=== PATIENT | male | born 1955 | race Caucasian/White ===

== ENCOUNTER 2017-12-14 16:31 | Outpatient (REF) | payer BC, SELFPAY ==
[2017-12-14 22:33] LABS: HCT 40.9 % (40.0-50.0); HGB 13.8 g/dL (13.5-17.5); Mean Corp. HGB Concentration 33.7 g/dL (32.0-36.0); Mean Corpuscular Hemoglobin 32.8 pg (27.0-33.0); Mean Corpuscular Volume 97.1 fL (80-95); Mean Platelet Volume 9.9 fL (8.0-11.0); Platelet Count 233 x1000/uL (130-400); RBC 4.21 m/cumm (4.50-6.00); RBC Distribution Width 13.7 % (11.8-14.1); White Blood Cell Count 8.33 k/cumm (4.4-10.8)
[2017-12-14 23:09] LABS: ALT 42 U/L (12-78); AST 31 U/L (15-37); Albumin 3.5 g/dL (3.4-5.0); Alkaline Phosphatase 192 U/L (46-116); Anion Gap 7.8 mmol/L (3-11); BUN 26 mg/dL (7-18); Bilirubin, Total 0.3 mg/dL (0.2-1.0); CO2 28.2 mmol/L (21.0-32.0); CREATININE 0.94 mg/dL (0.70-1.30); Chloride 106 mmol/L (98-107); Glucose 94 mg/dL (70-100); Potassium 4.3 mmol/L (3.5-5.1); Sodium 142 mmol/L (136-145); TSH 1.02 uIU/mL (0.358-3.74); Total Protein 6.8 g/dL (6.4-8.2); Vitamin B12 354 pg/mL (193-986)
[2017-12-14 23:19] LABS: Calcium 9.2 mg/dL (8.5-10.1)
== END 2017-12-14 16:51 ==
LOC: NCHCN 16:31
PROVIDERS: PCP Internal Medicine; Visit Provider Registered Nurse
DX: R26.9 Unspecified abnormalities of gait and mobility (principal)
CPT/HCPCS: 80053; 85027; 82607; 84443

== ENCOUNTER 2017-12-20 07:50 | Outpatient (REF) | payer BC, SELFPAY ==
[2017-12-20 22:43] LABS: ALT 41 U/L (12-78); AST 24 U/L (15-37); Albumin 3.4 g/dL (3.4-5.0); Alkaline Phosphatase 199 U/L (46-116); BUN 20 mg/dL (7-18); Bilirubin, Total 0.4 mg/dL (0.2-1.0); CREATININE 0.87 mg/dL (0.70-1.30); Calcium 8.5 mg/dL (8.5-10.1); Chloride 105 mmol/L (98-107); Glucose 97 mg/dL (70-100); Potassium 4.1 mmol/L (3.5-5.1); Sodium 143 mmol/L (136-145); Total Protein 6.7 g/dL (6.4-8.2)
[2017-12-21 16:27] LABS: GGT 269 U/L (15-85)
== END 2017-12-20 08:10 ==
LOC: NCHCN 07:50
PROVIDERS: PCP Internal Medicine; Visit Provider Registered Nurse
DX: Z00.01 Encounter for general adult medical examination with abnormal findings (principal); Z13.228 Encounter for screening for other metabolic disorders; R74.8 Abnormal levels of other serum enzymes
CPT/HCPCS: 80053; 82977

== ENCOUNTER 2018-03-27 12:26 | Outpatient (REF) | payer BC, SELFPAY ==
[2018-03-29 11:49] LABS: PSA, Screening 24.5 ng/ml (0-4.5)
== END 2018-03-27 12:46 ==
LOC: NCHCN 12:26
PROVIDERS: PCP Registered Nurse; Visit Provider Registered Nurse
DX: R82.90 Unspecified abnormal findings in urine (principal); R30.0 Dysuria; Z11.3 Encounter for screening for infections with a predominantly sexual mode of transmission; Z12.5 Encounter for screening for malignant neoplasm of prostate
CPT/HCPCS: 84153; 87077; 87086; 87186

== ENCOUNTER 2018-03-28 09:05 | Outpatient (REF) | payer BC, SELFPAY ==
[2018-03-30 14:36] LABS: Chlamydia Result Negative; GC Result Negative; Specimen Description URINE
== END 2018-03-28 09:25 ==
LOC: NCHCN 09:05
PROVIDERS: PCP Registered Nurse; Visit Provider Registered Nurse
DX: R82.90 Unspecified abnormal findings in urine (principal); R30.0 Dysuria; Z11.3 Encounter for screening for infections with a predominantly sexual mode of transmission
CPT/HCPCS: 87491; 87591

== ENCOUNTER 2019-04-18 10:25 | Outpatient (REF) | payer BC, SELFPAY ==
[2019-04-18 22:46] LABS: ALT 45 U/L (16-63); AST 29 U/L (15-37); Albumin 3.7 g/dL (3.4-5.0); Alkaline Phosphatase 246 U/L (46-116); Anion Gap 7.8 mmol/L (3-11); BUN 23 mg/dL (7-18); Bilirubin, Total 0.4 mg/dL (0.2-1.0); CO2 30.2 mmol/L (21.0-32.0); CREATININE 0.83 mg/dL (0.70-1.30); Calcium 9.1 mg/dL (8.5-10.1); Calculated LDL 159 mg/dL (<100); Chloride 104 mmol/L (98-107); Cholesterol 218 mg/dL (<200); Glucose 101 mg/dL (74-106); HDL Cholesterol 48 mg/dL (40-60); Potassium 4.7 mmol/L (3.5-5.1); Sodium 142 mmol/L (136-145); Total Protein 7.2 g/dL (6.4-8.2); Triglyceride 57 mg/dL (<150)
[2019-04-20 12:09] LABS: Hepatitis C Ab w Rflx HCV PCR Negative (Negative)
== END 2019-04-18 10:45 ==
LOC: NCHCN 10:25
PROVIDERS: PCP Registered Nurse; Visit Provider Registered Nurse
DX: Z00.00 Encounter for general adult medical examination without abnormal findings (principal); K76.0 Fatty (change of) liver, not elsewhere classified; R60.0 Localized edema; Z11.59 Encounter for screening for other viral diseases
CPT/HCPCS: 80053; 80061; 86803

== ENCOUNTER 2019-07-23 07:54 | Outpatient (REF) | payer BC, SELFPAY ==
[2019-07-23 21:59] LABS: Calculated LDL 93 mg/dL (<100); Cholesterol 157 mg/dL (<200); HDL Cholesterol 52 mg/dL (40-60); Triglyceride 61 mg/dL (<150)
== END 2019-07-23 08:14 ==
LOC: NCHCN 07:54
PROVIDERS: PCP Registered Nurse; Visit Provider Registered Nurse
DX: E78.5 Hyperlipidemia, unspecified (principal)
CPT/HCPCS: 80061

== ENCOUNTER 2019-08-24 17:48 | Outpatient (REF) | payer BC, SELFPAY ==
[2019-08-25 23:32] LABS: COVID-19 RT-PCR Result NEGATIVE (Negative)
== END 2019-08-24 18:08 ==
LOC: NCHCN 17:48
PROVIDERS: PCP Registered Nurse; Visit Provider Nurse Practitioner Family
DX: Z20.828 Contact with and (suspected) exposure to other viral communicable diseases (principal)
CPT/HCPCS: U0003

== ENCOUNTER 2019-11-05 22:37 | Outpatient (REF) | payer BC, SELFPAY ==
[2019-11-05 21:48] LABS: Calculated LDL 163 mg/dL (<100); Cholesterol 224 mg/dL (<200); HDL Cholesterol 52 mg/dL (40-60); Triglyceride 46 mg/dL (<150)
== END 2019-11-05 22:57 ==
LOC: NCHCN 22:37
PROVIDERS: PCP Registered Nurse; Visit Provider Registered Nurse
DX: E78.5 Hyperlipidemia, unspecified (principal)
CPT/HCPCS: 80061

== ENCOUNTER 2020-05-14 10:51 | Outpatient (REF) | payer BC, SELFPAY ==
[2020-05-14 14:04] LABS: ALT 65 U/L (16-63); AST 36 U/L (15-37); Albumin 3.7 g/dL (3.4-5.0); Alkaline Phosphatase 275 U/L (46-116); Anion Gap 9.8 mmol/L (3-11); BUN 27 mg/dL (7-18); Bilirubin, Total 0.5 mg/dL (0.2-1.0); CO2 25.2 mmol/L (21.0-32.0); CREATININE 0.8 mg/dL (0.70-1.30); Calcium 9.3 mg/dL (8.5-10.1); Calculated LDL 110 mg/dL (<100); Chloride 106 mmol/L (98-107); Cholesterol 185 mg/dL (<200); Glucose 105 mg/dL (74-106); HDL Cholesterol 65 mg/dL (40-60); Potassium 4.2 mmol/L (3.5-5.1); Sodium 141 mmol/L (136-145); Total Protein 7.4 g/dL (6.4-8.2); Triglyceride 54 mg/dL (<150)
== END 2020-05-14 10:52 | disposition home or self-care (01) ==
LOC: NCHCN 10:51
PROVIDERS: PCP Registered Nurse; Visit Provider Internal Medicine
DX: E78.5 Hyperlipidemia, unspecified (principal); K76.0 Fatty (change of) liver, not elsewhere classified
CPT/HCPCS: 80053; 80061

== ENCOUNTER 2020-08-07 15:04 | Outpatient (REF) | payer BC, SELFPAY ==
[2020-08-07 21:06] LABS: Abs Immature Grans 0.02 10^3/uL (0.0-0.06); Absolute Basophil Count 0.04 10^3/uL (0.0-0.2); Absolute Eosinophil Count 0.67 10^3/uL (0.0-0.7); Absolute Lymphocyte Count 2.22 10^3/uL (1.2-3.4); Absolute Monocyte Count 0.95 10^3/uL (0.1-0.8); Absolute Neutrophil Count 5.42 10^3/uL (1.2-6.7); Basophils % 0.4; Eosinophils % 7.2; HCT 40.5 % (40.0-50.0); HGB 13.4 g/dL (13.5-17.5); Immature Grans % 0.2; Lymphocytes % 23.8; MCH 31.6 pg (27.0-33.0); MCHC 33.1 % (32.0-36.0); MCV 95.5 fL (80-95); MPV 10.3 fL (8.0-11.0); Monocytes % 10.2; Neutrophils % 58.2; Nucleated RBC 0 %; Platelet Count 249 10^3/uL (130-400); RBC 4.24 10^6/uL (4.36-5.78); RDW 14.6 % (11.8-14.1); RDW-SD 51.2 fL; WBC 9.32 10^3/uL (4.4-10.8)
[2020-08-07 21:12] LABS: Bacteria Few HPF (Negative); C & S Indicated? C&S Done As Ordered; Casts Negative LPF (Negative); Crystals Negative HPF (Negative); Epithelial Cells Rare HPF (Negative); Mucus Negative (Negative); Other Cells Negative (Negative); RBC >50 HPF (0-2)
[2020-08-07 21:26] LABS: Anion Gap 5.6 mmol/L (3-11); BUN 22 mg/dL (7-18); CO2 27.4 mmol/L (21.0-32.0); CREATININE 0.8 mg/dL (0.70-1.30); Calcium 9.3 mg/dL (8.5-10.1); Chloride 104 mmol/L (98-107); Glucose 100 mg/dL (74-106); Sodium 137 mmol/L (136-145)
== END 2020-08-07 15:05 | disposition home or self-care (01) ==
LOC: NCHCN 15:04
PROVIDERS: PCP Registered Nurse; Visit Provider Registered Nurse
DX: I48.91 Unspecified atrial fibrillation (principal); E78.5 Hyperlipidemia, unspecified; R39.89 Other symptoms and signs involving the genitourinary system; Z12.5 Encounter for screening for malignant neoplasm of prostate; R30.0 Dysuria
CPT/HCPCS: 80048; 84153; 81015; 85025; 87086

== ENCOUNTER 2022-02-02 17:48 | Outpatient (REF) | payer BC, SELFPAY ==
[2022-02-02 22:14] LABS: ALT 51 U/L (16-63); AST 43 U/L (15-37); Albumin 3.4 g/dL (3.4-5.0); Alkaline Phosphatase 379 U/L (46-116); Anion Gap 6.1 mmol/L (3-11); BUN 30 mg/dL (7-18); Bilirubin, Total 0.6 mg/dL (0.2-1.0); CO2 27.9 mmol/L (21.0-32.0); CREATININE 1.1 mg/dL (0.70-1.30); Calcium 9.3 mg/dL (8.5-10.1); Calculated LDL 97 mg/dL (<100); Chloride 103 mmol/L (98-107); Cholesterol 187 mg/dL (<200); Estimated GFR 74.96 (mL/min/1.73m2); Glucose 87 mg/dL (74-106); HDL Cholesterol 84 mg/dL (40-60); Potassium 4.3 mmol/L (3.5-5.1); Sodium 137 mmol/L (136-145); Total Protein 7.3 g/dL (6.4-8.2); Triglyceride 33 mg/dL (<150)
== END 2022-02-02 17:49 | disposition home or self-care (01) ==
LOC: NCHCN 17:48
PROVIDERS: PCP Registered Nurse; Visit Provider Nurse Practitioner Family
DX: E78.5 Hyperlipidemia, unspecified (principal); E66.9 Obesity, unspecified
CPT/HCPCS: 80053; 80061

== ENCOUNTER 2023-05-02 14:11 | Outpatient (REF) | payer BC, SELFPAY ==
--- OUTSIDE RECORDS SUMMARY | 2023-05-02 14:18 | XMS_ITS | CCD ---
Author Name Unknown Address [address] [place] [address] [id number] Organization Unknown Address [address] [place] [address] [phone] Care Team Providers Care Filament Cutter Name Role Phone ANNIE CUNHA Attending Physician [phone] Vital Signs Unknown or Not Available. Allergies Allergy Code Allergy Type Reaction Status PENICILLINS (CLASS) 38219 Drug allergy Act pepe Procedures Unknown or Not Available. History of Immunizations Unknown or Not Available. Problems Unknown or Not Available. Results Unknown or Not Available. Active Medications Unknown or Not Available. Medications Administered During Visit Unknown or Not Available. Encounters Encounter Diagnosis Diagnosis Code Start Date Paroxysmal atrial fibrillation [id number] 0 11/02/2022 Social History Smoking Status Code Start Date End Date Current some day smoker [id number] Patient Decision Aids Unknown or Not Available. Discharge Instructions You were admitted to [facility] on 11/02/2022 09:14 with a principal diagnosis of Paroxysmal atrial fibrillation You were discharged from [facility] on 11/02/2022 09:14 Should you have any questions prior to discharge, please contact a member of your healthcare team. If you have left the hospital and have any questions, please contact your primary care physician. Chief Complaint and Reason For Visit Unknown or Not Available. Function Status Unknown or Not Available. Plan of Care Unknown or Not Available. Referral/Transition of Care Unknown or Not Available.
--- OUTSIDE RECORDS SUMMARY | 2023-05-02 14:18 | XMS_ITS | CCD ---
Author Name Unknown Address [address] [place] [address] [id number] Organization Unknown Address [address] [place], [place] [phone] Care Team Providers Care Line Out Worker Name Role Phone JERZY DAY Maggie Attending Physician [phone] Vital Signs Unknown or Not Available. Allergies Allergy Code Allergy Type Reaction Status PENICILLINS (CLASS) 72650 Drug allergy Act pepe Procedures Unknown or Not Available. History of Immunizations Unknown or Not Available. Problems Unknown or Not Available. Results Unknown or Not Available. Active Medications Unknown or Not Available. Medications Administered During Visit Unknown or Not Available. Encounters Encounter Diagnosis Diagnosis Code Start Date Bradycardia, unspecified R001 023 Social History Smoking Status Code Start Date End Date Current some day smoker [id number] Patient Decision Aids Unknown or Not Available. Discharge Instructions You were admitted to [facility] on 11/04/2022 10:37 with a principal diagnosis of Bradycardia, unspecified You were discharged from [facility] on 11/04/2022 10:37 Should you have any questions prior to [...]
--- OUTSIDE RECORDS SUMMARY | 2023-05-02 14:18 | XMS_ITS | CCD ---
Author Name Unknown Address [address] [place] [address] [id number] Organization Unknown Address [address] [place], [place] [id number] Care Team Providers Care Water Quality Manager Name Role Phone JERZY DAY Attending Physician [phone] Vital Signs Unknown or Not Available. Allergies Allergy Code Allergy Type Reaction Status PENICILLINS (CLASS) 06223 Drug allergy Act pepe Procedures Unknown or Not Available. History of Immunizations Unknown or Not Available. Problems Problem Code Start Date Resolved Date Status Stone in kidney 54076011 10/30/2022 Resolved Atrial fibrillation 38998754 10/30/2022 Resol raymon Results Unknown or Not Available. Active Medications Unknown or Not Available. Medications Administered During Visit Unknown or Not Available. Encounters Encounter Diagnosis Diagnosis Code Start Date Obstructive sleep apnea syndrome 26065862 10/27/2022 Social History Smoking Status Code Start Date End Date Current some day smoker [id number] Patient Decision Aids Unknown or Not Available. Discharge Instructions You were admitted to [facility] on 10/27/2022 14:39 with a principal diagnosis of Obstructive sleep apnea (adult) (pediatric) You were discharged from [facility] on 10/27/2022 14:39 Should you have any questions prior to [...]
--- OUTSIDE RECORDS SUMMARY | 2023-05-02 14:19 | XMS_ITS | CCD ---
Author Name Unknown Address [address] [place] [address] [phone] Organization Unknown Address [address] [place], [place] [id number] Care Team Providers Care Four Horse Hitch Driver Name Role Phone WALT BOLTON Attending Physician [phone] Vital Signs Unknown or Not Available. Allergies Allergy Code Allergy Type Reaction Status PENICILLINS (CLASS) 16497 Drug allergy Act pepe Procedures Unknown or Not Available. History of Immunizations Unknown or Not Available. Problems Problem Code Start Date Resolved Date Status Stone in kidney 17073105 10/30/2022 Resolved Atrial fibrillation 23896648 10/30/2022 Resol raymon Results Unknown or Not Available. Active Medications Unknown or Not Available. Medications Administered During Visit Unknown or Not Available. Encounters Encounter Diagnosis Diagnosis Code Start Date Abnormal findings on diagnos tic imaging of other abdominal regions, including retroperitoneum R935 04/21/2022 Social History Smoking Status Code Start Date End Date Current some day smoker [id number] Patient Decision Aids Unknown or Not Available. Discharge Instructions You were admitted to [facility] on 04/21/2022 07:40 with a principal diagnosis of Abnormal findings on diagnostic imaging of other abdominal regions, including retroperitoneum You were discharged from [facility] on 04/21/2022 07:40 Should you have any questions prior to discharge, please contact a member of your healthcare team. If you have left the hospital and have any questions, please contact your primary care physician. Chief Complaint and Reason For Visit Chief Complaint Date of Onset STEATOSIS OF LIVER Function Status Unknown or Not Available. Plan of Care Unknown or Not Available. Referral/Transition of Care Unknown or Not Available.
--- OUTSIDE RECORDS SUMMARY | 2023-05-02 14:19 | XMS_ITS | CCD ---
Author Name Unknown Address [address] [place] [address] [id number] Organization Unknown Address [address] [place], [place] [id number] Care Team Providers Care Battalion Chief Name Role Phone IRVIN LOYD Attending Physician [phone] Vital Signs Unknown or Not Available. Allergies Allergy Code Allergy Type Reaction Status PENICILLINS (CLASS) 58765 Drug allergy Act pepe Procedures Unknown or Not Available. History of Immunizations Unknown or Not Available. Problems Problem Code Start Date Resolved Date Status Stone in kidney 67662628 10/30/2022 Resolved Atrial fibrillation 06507559 10/30/2022 Resol raymon Results Unknown or Not Available. Active Medications Unknown or Not Available. Medications Administered During Visit Unknown or Not Available. Encounters Encounter Diagnosis Diagnosis Code Start Date Screening for malignant neoplasm of colon 998799 004 04/01/2022 Social History Smoking Status Code Start Date End Date Current some day smoker [id number] Patient Decision Aids Unknown or Not Available. Discharge Instructions You were admitted to [facility] on 04/01/2022 01:15 with a principal diagnosis of Encounter for screening for malignant neoplasm of colon You were discharged from [facility] on 04/01/2022 01:16 Should you have any questions prior to [...]
--- OUTSIDE RECORDS SUMMARY | 2023-05-02 14:19 | XMS_ITS | CCD ---
Author Name Unknown Address [address] [place] [address] [phone] Organization Unknown Address [address] [place], [place] [phone] Care Team Providers Care Asphalt Tamping Machine Operator Name Role Phone KALPESHISREALBARD SCHAFFER Attending Physician [phone] Vital Signs Unknown or Not Available. Allergies Allergy Code Allergy Type Reaction Status PENICILLINS (CLASS) 65665 Drug allergy Act pepe Procedures Unknown or Not Available. History of Immunizations Unknown or Not Available. Problems Problem Code Start Date Resolved Date Status Stone in kidney 73628030 10/30/2022 Resolved Atrial fibrillation 37721061 10/30/2022 Resol raymon Results Unknown or Not Available. Active Medications Unknown or Not Available. Medications Administered During Visit Unknown or Not Available. Encounters Encounter Diagnosis Diagnosis Code Start Date Snoring R0683 08/21/2022 Social History Smoking Status Code Start Date End Date Current some day smoker [id number] Patient Decision Aids Unknown or Not Available. Discharge Instructions You were admitted to [facility] on 08/21/2022 20:25 with a principal diagnosis of Snoring You were discharged from [facility] on 08/22/2022 06:30 Should you have any questions prior to [...]
--- OUTSIDE RECORDS SUMMARY | 2023-05-02 14:19 | XMS_ITS | CCD ---
Author Name Unknown Address [address] [place] [address] [phone] Organization Unknown Address [address] [place], [place] [phone] Care Team Providers Care Business Transformation Consultant Name Role Phone EVERTIRVIN PARKER Attending Physician [phone] Vital Signs Unknown or Not Available. Allergies Allergy Code Allergy Type Reaction Status PENICILLINS (CLASS) 31041 Drug allergy Act pepe Procedures Procedure Code Procedure Type Date Colsc Flx w/[place] [address] CPT 04/01/2022 Colonoscopy Flx w/Endoscopic Mucosal Resection 83273 CPT 04/01/2022 History of Immunizations Unknown or Not Available. Problems Problem Code Start Date Resolved Date Status Stone in kidney 73883672 10/30/2022 Resolved Atrial fibrillation 46042938 10/30/2022 Resol raymon Results Unknown or Not Available. Active Medications Unknown or Not Available. Medications Administered During Visit Unknown or Not Available. Encounters Encounter Diagnosis Diagnosis Code Start Date Encounter for screening for malignant neoplasm o f colon Z1211 04/01/2022 Social History Smoking Status Code Start Date End Date Current some day smoker [id number] Patient Decision Aids Unknown or Not Available. Discharge Instructions You were admitted to [facility] on 04/01/2022 08:52 with a principal diagnosis of Encounter for screening for malignant neoplasm of colon You had the following procedures done:Colsc Flx w/Rmvl Of Tumor Polyp Lesion Snare TqColonoscopy Flx w/Endoscopic Mucosal Resection You were discharged from [facility] on 04/01/2022 12:11 Should you have any questions prior to [...]
--- OUTSIDE RECORDS SUMMARY | 2023-05-02 14:19 | XMS_ITS | CCD ---
Author Name Unknown Address [address] [place] [address] [phone] Organization Unknown Address [address] [place], [place] [phone] Care Team Providers Care Back Closer Name Role Phone HEAVEN SHAW Attending Physician [phone] SILVA PRASAD Er Physician [phone] NAWAF Viramontes Registered Nurse [phone] Vital Signs Vital Sign Value Unit Date/Time Recent/Initial ? BMI (Body Mass Index) 32.55 kg/m^2 10/30/2022 11: 29 Initial VS Weight Measured 240 lbs 10/30/2022 11:29 Ini tial VS Height 72 in 10/30/2022 11:29 Initial VS BSA (Body Surface Area) 2.35 m^2 10/30/2022 1 1:29 Initial VS BP Systolic 149 mmHg 10/30/2022 11:29 Initial VS BP Diastolic 74 mmHg 10/30/2022 11:29 Initia l VS Respiratory Rate 20 bpm 10/30/2022 11:29 In itial VS Heart Rate 72 bpm 10/30/2022 11:29 Initial VS O2 % BldC Oximetry 96 % 10/30/2022 11:29 Initial VS Body Temperature 36.9 degrees 10/30/2022 11:29 In itial VS BP Systolic 140 mmHg 10/30/2022 14:17 Most Re cent VS BP Diastolic 72 mmHg 10/30/2022 14:17 Most R ecent VS Respiratory Rate 16 bpm 10/30/2022 14:[address] Recent VS Heart Rate 60 bpm 10/30/2022 14:17 Most Rec ent VS O2 % BldC Oximetry 97 % 10/30/2022 14:17 Most Recent VS Body Temperature 36.4 degrees 10/30/2022 14:[address] Recent VS Allergies Allergy Code Allergy Type Reaction Status PENICILLINS (CLASS) 47293 Drug allergy Act pepe Procedures Unknown or Not Available. History of Immunizations Unknown or Not Available. Problems Problem Code Start Date Resolved Date Status Stone in kidney 64001868 10/30/2022 Resolved Atrial fibrillation 18484623 10/30/2022 Resol raymon Results COMPREHENSIVE METABOLIC PANE L (CMP) - Collect Date/Time: 10/30/2022 12:22 Test Name Code Test Result Test Units Test Ref Rang e GLUCOSE 2345-7 103 mg/dL L=70 H=116 BUN 3094-0 24 mg/dL L=6 H=25 CREATININE 2160-0 0.84 mg/dL L=0.67 H=1.17 SODIUM SERUM 2951-2 138 mmol/L L=136 H=145 POTASSIUM SERUM 2823-3 3.9 mmol/L L=3.4 H=5 .2 CHLORIDE SERUM 2075-0 103 mmol/L L=96 H=110 CARBON DIOXIDE (CO2) 2028-9 25 mmol/L L=22 H=34 ANION GAP 42787-2 9.6 mmol/L CALCIUM SERUM 10656-2 9.3 mg/dL L=8.2 H=10. 2 BILIRUBIN TOTAL 1975-2 1.1 mg/dL L=0.0 H=1 .3 ALK. PHOS. 6768-6 277 U/L L=46 H=116 SGOT (AST) 1920-8 32 U/L L=15 H=37 SGPT (ALT) 1742-6 40 U/L L=12 H=78 TOTAL PROTEIN 2885-2 7.7 gm/dL L=6.0 H=8.0 ALBUMIN 1751-7 3.4 gm/dL L=3.4 H=5.0 AGE 67 years eGFR (non-Afr.Amer.) 55749-8 92 mL/min eGFR (Afr-Angolan) 49357-7 111 mL/min CBC W/ DIFFERENTIAL* - Colle ct Date/Time: 10/30/2022 12:22 Test Name Code Test Result Test Units Test Ref Rang e WBC 6690-2 10.21 th/cmm L=5.00 H=10.00 NEUT % 65.2 % L=40.0 H=80.0 LYMPH % 14.4 % L=10.0 H=50.0 MONO % 15990-9 16.5 % L=2.0 H=12.0 EOS % 3.2 % L=0.0 H=8.0 BASO % 0.4 % L=0.0 H=3.0 IG % 2514-8 0.3 % L=0.0 H=1.1 NRBC % 82719-3 0.0 % L=0.0 H=0.0 NEUT abs count 751-8 6.7 th/cmm L=1.6 H=8. 4 LYMPH abs count 731-0 1.5 th/cmm L=1.5 H=4 .0 MONO abs count 742-7 1.7 th/cmm L=0.2 H=1. 0 EOS abs count 711-2 0.3 th/cmm L=0.0 H=0.5 BASO abs count 704-7 0.0 th/cmm L=0.0 H=0. 2 IG abs count 24916-8 0.0 th/cmm L=0.0 H=0.1 NRBC abs count 10816-5 0.0 mil/cmm L=0.0 H=0. 0 RBC 789-8 4.83 mil/cmm L=4.30 H=6.20 HEMOGLOBIN 718-7 16.2 gm/dL L=13.0 H=17.0 HEMATOCRIT 4544-3 47 % L=45 H=52 MCV 787-2 98 fL L=82 H=92 MCH 785-6 33.5 pg L=27.0 H=31.0 MCHC 786-4 34.2 % L=32.0 H=36.0 RDW-SD 788-0 54.4 fL L=39.0 H=49.0 PLATELET COUNT 777-3 142 th/cmm L=150 H=45 0 Toxic gran 2+ N/A URINALYSIS WITH REFLEX CULT IF POSITIVE* - Collect Date/Time: 10/30/2022 12:00 Test Name Code Test Result Test Units Test Ref Rang e COLLECTION MODE: 50063-8 CLEAN CATCH N/A Color 5778-6 YELLOW N/A yellow Appearance 5767-9 CLEAR N/A clear Glucose urine 69900-7 NEGATIVE N/A negative mg /dl Bilirubin 5770-3 NEGATIVE N/A negative Ketones 2514-8 15 N/A negative mg/dl Spec gravity 5811-5 1.020 N/A 1.003 - 1.03 0 pH urine 2756-5 6.0 N/A 5.0 - 7.0 Protein 12888-8 NEGATIVE N/A negative mg/dl Urobilinogen 54933-3 0.2 N/A <or= 1 EU/dl Nitrite. 5802-4 NEGATIVE N/A negative Blood 5794-3 TRACE-IN N/A negative Leukocytes. NEGATIVE N/A negative MICROSCOPIC INDICATED N/A WBCs. 17761-4 0-5 N/A 0-5 / hpf RBCs 97436-4 0-5 N/A 0-5 / hpf Epith cells 92449-4 0-5 N/A 0-5 / hpf Cell types squamous N/A Crystals none N/A none Bacteria minimal N/A none Mucus 8247-9 none N/A none Casts 32803-8 none N/A none /lpf Active Medications Unknown or Not Available. Medications Administered During Visit Unknown or Not Available. Encounters Encounter Diagnosis Diagnosis Code Start Date Chest pain 01751137 10/30/2022 Social History Smoking Status Code Start Date End Date Current some day smoker [id number] Patient Decision Aids Unknown or Not Available. Discharge Instructions You were admitted to [facility] on 10/30/2022 11:27 with a principal diagnosis of Other chest pain You had the following tests done:CBC W/ DIFFERENTIAL*COMPREHENSIVE METABOLIC PANEL (CMP)URINALYSIS WITH REFLEX CULT IF POSITIVE* You were discharged from [facility] on 10/30/2022 14:19 Should you have any questions prior to discharge, please contact a member of your healthcare team. If you have left the hospital and have any questions, please contact your primary care physician. Chief Complaint and Reason For Visit Chief Complaint Date of Onset POSSIBLE KIDNEY STONES Function Status Unknown or Not Available. Plan of Care Unknown or Not Available. Referral/Transition of Care Unknown or Not Available.
--- OUTSIDE RECORDS SUMMARY | 2023-05-02 14:19 | XMS_ITS | CCD ---
Author Name Unknown Address [address] [place] [address] [id number] Organization Unknown Address [address] [place], [place] [id number] Care Team Providers Care Census Enumerator Name Role Phone JAREN BARBA Attending Physician [phone] Vital Signs Unknown or Not Available. Allergies Allergy Code Allergy Type Reaction Status PENICILLINS (CLASS) 78595 Drug allergy Act pepe Procedures Unknown or Not Available. History of Immunizations Unknown or Not Available. Problems Problem Code Start Date Resolved Date Status Stone in kidney 01718925 10/30/2022 Resolved Atrial fibrillation 96344593 10/30/2022 Resol raymon Results Unknown or Not Available. Active Medications Unknown or Not Available. Medications Administered During Visit Unknown or Not Available. Encounters Encounter Diagnosis Diagnosis Code Start Date Paroxysmal atrial fibrillation I480 0 10/07/2022 Social History Smoking Status Code Start Date End Date Current some day smoker [id number] Patient Decision Aids Unknown or Not Available. Discharge Instructions You were admitted to [facility] on 10/07/2022 10:25 with a principal diagnosis of Paroxysmal atrial fibrillation You were discharged from [facility] on 10/07/2022 10:26 Should you have any questions prior to [...]
--- OUTSIDE RECORDS SUMMARY | 2023-05-02 14:19 | XMS_ITS | CCD ---
Author Name Unknown Address [address] [place] [address] [id number] Organization Unknown Address [address] [place], [place] [phone] Care Team Providers Care Spectrographic Analyst Name Role Phone IRVIN LOYD Jos Attending Physician [phone] Vital Signs Unknown or Not Available. Allergies Allergy Code Allergy Type Reaction Status PENICILLINS (CLASS) 95291 Drug allergy Act pepe Procedures Unknown or Not Available. History of Immunizations Unknown or Not Available. Problems Problem Code Start Date Resolved Date Status Stone in kidney 37835459 10/30/2022 Resolved Atrial fibrillation 44753281 10/30/2022 Resol raymon Results LETA COVID RHEONIX* - Adrienne ect Date/Time: 03/30/2022 09:26 Test Name Code Test Result Test Units Test Ref Rang e Tier- 93691-2 PRE-OP N/A SARS COV2 RNA: 76347-2 NEGATIVE N/A REFERENCE RANGE: NEGAT Active Medications Unknown or Not Available. Medications Administered During Visit Unknown or Not Available. Encounters Encounter Diagnosis Diagnosis Code Start Date Pre-surgery testing 751269927 03/30/2022 Social History Smoking Status Code Start Date End Date Current some day smoker 756096349450809 Patient Decision Aids Unknown or Not Available. Discharge Instructions You were admitted to [facility] on 03/30/2022 21:51 with a principal diagnosis of Encounter for preprocedural laboratory examination You had the following tests done:LETA COVID RHEONIX* You were discharged from [facility] on 03/30/2022 21:51 Should you have any questions prior to [...]
--- OUTSIDE RECORDS SUMMARY | 2023-05-02 14:19 | XMS_ITS | CCD ---
Author Name Unknown Address [address] [place] [address] [id number] Organization Unknown Address [address] [place] [address] [phone] Care Team Providers Care Assembly Mechanic Name Role Phone WALT BOLTON Attending Physician [phone] Vital Signs Unknown or Not Available. Allergies Allergy Code Allergy Type Reaction Status PENICILLINS (CLASS) 43192 Drug allergy Act pepe Procedures Unknown or Not Available. History of Immunizations Unknown or Not Available. Problems Problem Code Start Date Resolved Date Status Stone in kidney 97725475 10/30/2022 Resolved Atrial fibrillation 15547979 10/30/2022 Resol raymon Results BUN/CREATININE RATIO FOR RAD IOLOGY* - Collect Date/Time: 05/14/2022 09:20 Test Name Code Test Result Test Units Test Ref Rang e BUN 3094-0 27 mg/dL L=6 H=25 CREATININE 2160-0 1.03 mg/dL L=0.67 H=1.17 BUN/CREATININE RATIO 3097-3 26.2 AGE 67 years eGFR (non-Afr.Amer) 63669-3 72 mL/min eGFR (Afr-Libyan) 44330-2 88 mL/min Active Medications Unknown or Not Available. Medications Administered During Visit Unknown or Not Available. Encounters Encounter Diagnosis Diagnosis Code Start Date Abnormal findings on diagnos tic imaging of other abdominal regions, including retroperitoneum R935 05/14/2022 Social History Smoking Status Code Start Date End Date Current some day smoker [id number] Patient Decision Aids Unknown or Not Available. Discharge Instructions You were admitted to [facility] on 05/14/2022 08:32 with a principal diagnosis of Abnormal findings on diagnostic imaging of other abdominal regions, including retroperitoneum You had the following tests done:BUN/CREATININE RATIO FOR RADIOLOGY* You were discharged from [facility] on 05/14/2022 08:32 Should you have any questions prior to discharge, please contact a member of your healthcare team. If you have left the hospital and have any questions, please contact your primary care physician. Chief Complaint and Reason For Visit Chief Complaint Date of Onset ABN US FINDINGS Function Status Unknown or Not Available. Plan of Care Unknown or Not Available. Referral/Transition of Care Unknown or Not Available.
--- OUTSIDE RECORDS SUMMARY | 2023-05-02 14:20 | XMS_ITS | Patient Health Record ---
Author Name Unknown Organization [facility] Address [address] [place], [place] [address] Care Team Providers Care Tile Inspector Name Role Phone Other, Not at [facility] Primary Care Provider ROSIE King Unavailable [phone] ALLERGIES Allergen (clinical drug ingredient) Drug/Non Drug Allergy documented on EMR Reaction Allergy Type Onset Date Status Penicillin Unknown Drug Allergy Active REASON FOR REFERRAL No Information MEDICATIONS Medication SIG (Take, Route, Frequency, Duration) Notes Start Date End Date Status dilTIAZem HCl ER 60 MG 1 capsule Orally Twice a day Active Atorvastatin Calcium 40 MG 1 tablet Oral ly Once a day Active IMMUNIZATIONS Vaccine Route Administration Date Status Comme nts Shingrix Unknown 05/22/2018 Administered Shingrix Unknown 03/20/2020 Administered Tdap Unknown 01/09/2018 Administered SOCIAL HISTORY Sex Assigned At : Social History Observation Description Sex Assigned At Unknown PLAN OF TREATMENT No Information MEDICAL (GENERAL) HISTORY Medical History History ICD Code paroxysmal atrial fibrillation [place] Hyperlipidema
--- OUTSIDE RECORDS SUMMARY | 2023-05-02 14:20 | XMS_ITS | CCD ---
Author Name Unknown Address [address] [place] [phone] Organization Unknown Address [address] [place], [place] [phone] Care Team Providers Care Director Instrumentation Name Role Phone MARICRUZ MUHAMMAD MD Attending Physician [phone] SILVA PRASAD Er Physician [phone] Vital Signs Unknown or Not Available. Allergies Allergy Code Allergy Type Reaction Status PENICILLINS (CLASS) 37664 Drug allergy Act pepe Procedures Unknown or Not Available. History of Immunizations Unknown or Not Available. Problems Problem Code Start Date Resolved Date Status Stone in kidney 52461842 10/30/2022 Resolved Atrial fibrillation 04596820 10/30/2022 Resol raymon Results Unknown or Not Available. Active Medications Unknown or Not Available. Medications Administered During Visit Unknown or Not Available. Encounters Encounter Diagnosis Diagnosis Code Start Date Laceration without foreign b nabila of left elbow, initial encounter Q84043G 08/26/2020 Social History Smoking Status Code Start Date End Date Current some day smoker [id number] Patient Decision Aids Unknown or Not Available. Discharge Instructions You were admitted to [facility] [place] [facility] on 08/26/2020 11:12 with a principal diagnosis of Laceration without foreign body of left elbow, initial encounter You were discharged from [facility] [place] [facility] on 08/26/2020 12:41 Should you have any questions prior to discharge, please contact a member of your healthcare team. If you have left the hospital and have any questions, please contact your primary care physician. Chief Complaint and Reason For Visit Chief Complaint Date of Onset LACERATION Function Status Unknown or Not Available. Plan of Care Unknown or Not Available. Referral/Transition of Care Unknown or Not Available.
--- OUTSIDE RECORDS SUMMARY | 2023-05-02 14:20 | XMS_ITS | CCD ---
Author Name Unknown Address [address] [place] [phone] Organization Unknown Address [address] [place], [place] [phone] Care Team Providers Care Chemistry Instructor Name Role Phone JAREN BARBA Attending Physician [phone] JAREN BARBA Rounding (Secondary) Physician [phone] Vital Signs Unknown or Not Available. Allergies Allergy Code Allergy Type Reaction Status PENICILLINS (CLASS) 82305 Drug allergy Act pepe Procedures Unknown or Not Available. History of Immunizations Unknown or Not Available. Problems Problem Code Start Date Resolved Date Status Stone in kidney 27368180 10/30/2022 Resolved Atrial fibrillation 08581691 10/30/2022 Resol raymon Results Unknown or Not Available. Active Medications Unknown or Not Available. Medications Administered During Visit Unknown or Not Available. Encounters Encounter Diagnosis Diagnosis Code Start Date Paroxysmal atrial fibrillation I480 0 10/16/2021 Social History Smoking Status Code Start Date End Date Current some day smoker [id number] Patient Decision Aids Unknown or Not Available. Discharge Instructions You were admitted to [facility] [place] [facility] on 10/16/2021 10:03 with a principal diagnosis of Paroxysmal atrial fibrillation You were discharged from [facility] [place] [facility] on 10/16/2021 00:00 Should you have any questions prior to [...]
[2023-05-02 15:22] LABS: Hemoglobin A1C 5.7 % (<5.7)
[2023-05-02 15:25] LABS: ALT 43 U/L (16-63); AST 34 U/L (15-37); Albumin 3.8 g/dL (3.4-5.0); Alkaline Phosphatase 284 U/L (46-116); Anion Gap 10.3 mmol/L (3-11); BUN 33 mg/dL (7-18); Bilirubin, Total 0.6 mg/dL (0.2-1.0); CO2 27.7 mmol/L (21.0-32.0); CREATININE 1.2 mg/dL (0.70-1.30); Calcium 9.6 mg/dL (8.5-10.1); Calculated LDL 99 mg/dL (<100); Chloride 104 mmol/L (98-107); Cholesterol 190 mg/dL (<200); Glucose 95 mg/dL (74-106); HDL Cholesterol 83 mg/dL (40-60); Potassium 4.5 mmol/L (3.5-5.1); Sodium 142 mmol/L (136-145); Triglyceride 44 mg/dL (<150)
[2023-05-02 15:51] LABS: Total Protein 8.3 g/dL (6.4-8.2)
[2023-05-02 22:46] LABS: PSA, Screening 2.1 ng/mL (<=4.5)
== END 2023-05-02 14:12 | disposition home or self-care (01) ==
LOC: NCHCN 14:11
PROVIDERS: PCP Registered Nurse; Referring Provider Nurse Practitioner Family; Visit Provider Nurse Practitioner Family
DX: Z00.00 Encounter for general adult medical examination without abnormal findings (principal); R73.9 Hyperglycemia, unspecified
CPT/HCPCS: 80053; 80061; 84153; 83036

== ENCOUNTER 2023-06-03 08:49 | Outpatient (REF) | payer BC, SELFPAY ==
[2023-06-03 14:27] LABS: HCT 48.1 % (40.0-50.0); HGB 16.2 g/dL (13.5-17.5); MCH 33.3 pg (27.0-33.0); MCHC 33.7 % (32.0-36.0); MCV 99 fL (80-95); MPV 10.5 fL (8.0-11.0); Platelet Count 168 10^3/uL (130-400); RBC 4.87 10^6/uL (4.36-5.78); RDW 15.4 % (11.8-14.1); RDW-SD 56.3 fL; WBC 6.79 10^3/uL (4.4-10.8)
[2023-06-03 15:36] LABS: Vitamin D 25 Total 24.2 ng/mL (30-100)
== END 2023-06-03 08:50 | disposition home or self-care (01) ==
LOC: NCHCN 08:49
PROVIDERS: PCP Registered Nurse; Visit Provider Nurse Practitioner Family
DX: R74.8 Abnormal levels of other serum enzymes (principal); E78.5 Hyperlipidemia, unspecified; E55.9 Vitamin D deficiency, unspecified
CPT/HCPCS: 82306; 85027

== ENCOUNTER 2024-04-19 08:35 | Outpatient (REF) | payer BC, SELFPAY ==
--- OUTSIDE RECORDS SUMMARY | 2024-04-19 08:37 | XMS_ITS ---
Author Organization Unknown Address [address] [place] [address] [phone] Phone Care Team Providers Care Lead Blender Name Role Phone EVERT IRVIN Arguello Attending Unavailable RUBEN Avendano Primary Unavailable Results [facility] - Adrienne ect Date/Time: 03/30/2022 09:26 [facility] ID: [id number] [address] [place] [address], [phone] LOINC: 79439-1 Test Value Unit Reference Range Code Code System Flag Tier- PRE-OP 39664-3 LOINC SARS COV2 RNA: NEGATIVE REFERENCE RANGE: NEGAT 82772-4 L OINC Social History Type Status Start Date End Date Code Code Syst em Smoking History Current some day smoker [id number] SNOMED CT Sex Male Medications Medication Start Date End Date Route Frequency Dose Code Code System Medication Instructions Home Meds Meclizine HCl 25MG Oral Tablet 07/02/2023 Unknown ORAL NEEDED EVERY 6 HOURS 1 TABLET 170042 RxNorm TAKE 1 TABLET ORAL NEEDED EVERY 6 HOURS FOR Dizziness Assessment You had the following problems:BPPV - BENIGN PAROXYSMAL POSITIONAL VERTIGO NYSTAGMUSCHRONIC ATRIAL FIBRILLATION (DISORDER)MILD DEHYDRATION Hospital Discharge Instructions Should you have any questions prior to discharge, please contact a member of your healthcare team. If you have left the hospital and have any questions, please contact your primary care physician. Reason For Referral No Data Found Problems Problem Start Date Resolved Date Status Code Code System BPPV - BENIGN PAROXYSMAL POSITIONAL VERTIGO NYSTAGMUS active 298332538 SNOMED-CT CHRONIC ATRIAL FIBRILLATION (DISORDER) active 062881683 SNOM ED-CT MILD DEHYDRATION active 8729361187959 SNOMED-CT STONE IN KIDNEY 10/30/2022 resolved 64017283 SNO MED-CT ATRIAL FIBRILLATION 10/30/2022 resolved 82750633 SNOMED-CT Allergies and Adverse Reactions Allergy Substance Reaction Severity Start Date Concern Status Code Code System PENICILLINS (CLASS) SWELLING (SNOMED-CT: null) Moderate Active 3750067 SNOMED-CT Plan of Treatment CT ABDOMEN W/ CONTRAST 05/14/2022 US ABDOMEN LIMITED 1 ORGAN 04/21/2022 PRE-OP COVID-19 TESTING 03/30/2022 Encounters Encounter Diagnosis Start Date Code Code Sys tem Pre-surgery testing 03/30/2022 660652475 SNOMED-C T Personal Care Team Section Performer Name Performer Role Active Date Inactive Da te
--- OUTSIDE RECORDS SUMMARY | 2024-04-19 08:37 | XMS_ITS ---
Author Organization Unknown Address [address] [place] [phone] Phone Care Team Providers Care Tree Planter Name Role Phone FREDA Newell Attending Unavailable Social History Type Status Start Date End Date Code Code Syst em Smoking History Current some day smoker [id number] SNOMED CT Sex Male Medications Medication Start Date End Date Route Frequency Dose Code Code System Medication Instructions Home Meds Meclizine HCl 25MG Oral Tablet 07/02/2023 Unknown ORAL NEEDED EVERY 6 HOURS 1 TABLET 709771 RxNorm TAKE 1 TABLET ORAL NEEDED EVERY [...] - BENIGN PAROXYSMAL POSITIONAL VERTIGO NYSTAGMUS active 662063568 SNOMED-CT CHRONIC ATRIAL FIBRILLATION (DISORDER) active 751607460 SNOM ED-CT MILD DEHYDRATION active 0849532610710 SNOMED-CT STONE IN KIDNEY 10/30/2022 resolved 82290876 SNO MED-CT ATRIAL FIBRILLATION 10/30/2022 resolved 14202504 SNOMED-CT Allergies and Adverse Reactions Allergy Substance Reaction Severity Start Date Concern Status Code Code System PENICILLINS (CLASS) SWELLING (SNOMED-CT: null) Moderate Active 4483814 SNOMED-CT Plan of Treatment CT ABDOMEN W/ CONTRAST 05/14/2022 US ABDOMEN LIMITED 1 ORGAN 04/21/2022 PRE-OP COVID-19 TESTING 03/30/2022 Encounters Encounter Diagnosis Start Date Code Code Sys tem Paroxysmal atrial fibrillation 10/16/2021 SNOMED-CT Personal Care Team Section Performer Name Performer Role Active Date Inactive Da te
--- OUTSIDE RECORDS SUMMARY | 2024-04-19 08:37 | XMS_ITS | Patient Health Record ---
Author Organization [facility] Address [address] [place], [place] [phone] Care Team Providers Care Engineering Lecturer Name Role Phone Other, Not at [facility] Primary Care Provider Joliea ROSIE Patrick Unavailable [phone] Allergies Allergen (clinical drug ingredient) Drug/Non Drug Allergy documented on EMR Reaction Allergy Type Onset Date Status Penicillin Unknown Drug Allergy Active Reason For Referral No Information Medications Medication SIG (Take, Route, Frequency, Duration) Notes Start Date End Date Status dilTIAZem HCl ER 60 MG 1 capsule Orally Twice a day Active Atorvastatin Calcium 40 MG 1 tablet Oral ly Once a day Active Immunizations Vaccine Route Administration Date Status Comme nts Tdap Unknown 01/09/2018 Administered Shingrix Unknown 05/22/2018 Administered Shingrix Unknown 03/20/2020 Administered Plan Of Treatment No Information Medical (General) History Medical History History ICD Code paroxysmal atrial fibrillation [place] Hyperlipidema
--- OUTSIDE RECORDS SUMMARY | 2024-04-19 08:38 | XMS_ITS ---
Author Organization Unknown Address [address] [place] [phone] Phone Care Team Providers Care Thrill Performer Name Role Phone EVERT Arguello Attending Unavailable Social History Type Status Start Date End Date Code Code Syst em Smoking History Current some day smoker [id number] SNOMED CT Sex Male Medications Medication Start Date End Date Route Frequency Dose Code Code System Medication Instructions Home Meds Meclizine HCl 25MG Oral Tablet 07/02/2023 Unknown ORAL NEEDED EVERY 6 HOURS 1 TABLET 547732 RxNorm TAKE 1 TABLET ORAL NEEDED EVERY [...] - BENIGN PAROXYSMAL POSITIONAL VERTIGO NYSTAGMUS active 679810809 SNOMED-CT CHRONIC ATRIAL FIBRILLATION (DISORDER) active 172254310 SNOM ED-CT MILD DEHYDRATION active 5785548491117 SNOMED-CT STONE IN KIDNEY 10/30/2022 resolved 70515021 SNO MED-CT ATRIAL FIBRILLATION 10/30/2022 resolved 71576952 SNOMED-CT Allergies and Adverse Reactions Allergy Substance Reaction Severity Start Date Concern Status Code Code System PENICILLINS (CLASS) SWELLING (SNOMED-CT: null) Moderate Active 8202356 SNOMED-CT Plan of Treatment CT ABDOMEN W/ CONTRAST 05/14/2022 US ABDOMEN LIMITED 1 ORGAN 04/21/2022 PRE-OP COVID-19 TESTING 03/30/2022 Encounters Encounter Diagnosis Start Date Code Code Sys tem Screening for malignant neoplasm of colon 04/01/2022 251954272 SNOMED-CT Personal Care Team Section Performer Name Performer Role Active Date Inactive Da te
--- OUTSIDE RECORDS SUMMARY | 2024-04-19 08:38 | XMS_ITS ---
Author Organization Unknown Address [address] [place] [phone] Phone Care Team Providers Care Mica Layer Name Role Phone CHE Dorantes Attending Unavailable Results US ABD LIMITED ONE ORGAN - C ompleted: 04/21/2022 08:27 LOINC: [facility] [place], [place] [address] PACS METAL ROOM DENTAL TECHNICIAN REPORT Patient Name: TREV LOWE MRN: Sex: : Age: [id number] M 1955 67 Account: Accession: Admit: StayType: [id number] 04/21/2022 O/P Ordered: Order ID: Submitted: Ordering Provider: 04/21/2022 07:44 [id number] [facility] Completed: Technologist: Resulted: 04/21/2022 08:27 GVS 04/29/2022 10:32 Study Description: US ABD LIMITED ONE ORGAN Study Reason: STEATOSIS OF LIVER TECHNIQUE: Ultrasound abdomen performed using standard protocol. COMPARISON: No exams were available for comparison FINDINGS: There is no ascites evident. LIVER: There are no hepatic lesions evident nor dilatation of intrahepatic ducts. No obvious steatosis. GALLBLADDER/BILIARY: There are no gallstones.. Gallbladder wall appears uniformly thickened but without a stripe sign. Gallbladder wall thickness is 3.2 mm. The common hepatic duct is[not dilated, measuring 5 mm at the level of rolo hepatis. PANCREAS: There is a suggestion of a prominent mass in the pancreatic tail region measuring approximately 8 x 4 cm. On real-time imaging there is possibly that this is possibly bowel but difficult to differentiate on the study. The remainder of the wrist including the pancreatic head appears unremarkable. Pancreatic duct is not dilated. RIGHT KIDNEY:No evidence of solid mass, calculus, nor hydronephrosis. No cortical cysts evident. IMPRESSION: 1. No evidence of obvious hepatic steatosis, as per request. No focal hepatic lesions evident. 2. No gallstones noted but the gallbladder wall appears somewhat uniformly thickened. No evidence of stripe sign nor pericholecystic fluid. 3. There is suggestion of a possible large mass in the pancreatic tail measuring approximately 8 x 4 cm. Through that this represents a prominent bowel loop projected over this region. Recommend follow-up contrast infused CT scan using pancreatic protocol. Report Digitally Signed by Desmond Vines on 04/21/2022 09:24 AM EST Addendum ------ Addendum: Noncontrast CT of the abdomen and pelvis from [facility] was reviewed and showed no abnormality of the pancreas. There recent ultrasound questions a mass in the tail of the pancreas. Recommendation continues to be abdominal CT utilizing pancreatic protocol. Addendum Digitally Signed by Annamaria Gallegos on 04/29/2022 10:32 AM EST Social History Type Status Start Date End Date Code Code Syst em Smoking History Current some day smoker 005731719306960 SNOMED CT Sex Male Medications Medication Start Date End Date Route Frequency Dose Code Code System Medication Instructions Home Meds Meclizine HCl 25MG Oral Tablet 07/02/2023 Unknown ORAL NEEDED EVERY 6 HOURS 1 TABLET 042914 RxNorm TAKE 1 TABLET ORAL NEEDED EVERY [...] - BENIGN PAROXYSMAL POSITIONAL VERTIGO NYSTAGMUS active 327687741 SNOMED-CT CHRONIC ATRIAL FIBRILLATION (DISORDER) active 542618969 SNOM ED-CT MILD DEHYDRATION active 6157625285090 SNOMED-CT STONE IN KIDNEY 10/30/2022 resolved 36825400 SNO MED-CT ATRIAL FIBRILLATION 10/30/2022 resolved 50009885 SNOMED-CT Allergies and Adverse Reactions Allergy Substance Reaction Severity Start Date Concern Status Code Code System PENICILLINS (CLASS) SWELLING (SNOMED-CT: null) Moderate Active 0135084 SNOMED-CT Plan of Treatment CT ABDOMEN W/ CONTRAST 05/14/2022 US ABDOMEN LIMITED 1 ORGAN 04/21/2022 PRE-OP COVID-19 TESTING 03/30/2022 Encounters Encounter Diagnosis Start Date Code Code Sys tem Abnormal findings on diagnos tic imaging of other abdominal regions, including retroperitoneum 04/21/2022 SNOMED-CT Personal Care Team Section Performer Name Performer Role Active Date Inactive Da lebron
--- OUTSIDE RECORDS SUMMARY | 2024-04-19 08:38 | XMS_ITS ---
Author Organization Unknown Address [address] [place] [phone] Phone Care Team Providers Care Director Of Promotions Name Role Phone EVERTSHYANNE BRYAN Jos Attending Unavailable RUBEN Avendano Primary Unavailable Social History Type Status Start Date End Date Code Code Syst em Smoking History Current some day smoker [id number] SNOMED CT Sex Male Medications Medication Start Date End Date Route Frequency Dose Code Code System Medication Instructions Home Meds Meclizine HCl 25MG Oral Tablet 07/02/2023 Unknown ORAL NEEDED EVERY 6 HOURS 1 TABLET 496863 RxNorm TAKE 1 TABLET ORAL NEEDED EVERY [...] physician. Reason For Referral No Data Found Procedures Procedure Name Date Status Code Code Syste m Colsc Flx w/Rmvl Of Tumor Po lyp Lesion Snare Tq 04/01/2022 completed 49686 CPT Colonoscopy Flx w/Endoscopic Mucosal Resection 04/01/2022 completed 88093 CPT Problems Problem Start Date Resolved Date Status Code Code System BPPV - BENIGN PAROXYSMAL POSITIONAL VERTIGO NYSTAGMUS active 752915033 SNOMED-CT CHRONIC ATRIAL FIBRILLATION (DISORDER) active 863851942 SNOM ED-CT MILD DEHYDRATION active 5572104837208 SNOMED-CT STONE IN KIDNEY 10/30/2022 resolved 43663048 SNO MED-CT ATRIAL FIBRILLATION 10/30/2022 resolved 07266941 SNOMED-CT Allergies and Adverse Reactions Allergy Substance Reaction Severity Start Date Concern Status Code Code System PENICILLINS (CLASS) SWELLING (SNOMED-CT: null) Moderate Active 1681957 SNOMED-CT Plan of Treatment CT ABDOMEN W/ CONTRAST 05/14/2022 US ABDOMEN LIMITED 1 ORGAN 04/21/2022 PRE-OP COVID-19 TESTING 03/30/2022 Encounters Encounter Diagnosis Start Date Code Code Sys tem Encounter for screening for malignant neoplasm of colo n 04/01/2022 SNOMED-CT Personal Care Team Section Performer Name Performer Role Active Date Inactive Da te
--- OUTSIDE RECORDS SUMMARY | 2024-04-19 08:39 | XMS_ITS ---
Author Organization Unknown Address [address] [place] [phone] Phone Care Team Providers Care Expedition Supervisor Name Role Phone CHE Dorantes Attending Unavailable Results BUN/CREATININE RATIO FOR RAD IOLOGY* - Collect Date/Time: 05/14/2022 09:20 [facility] ID: [id number] [address] [place], [place], [address] LOINC: 3097-3 Test Value Unit Reference Range Code Code System Flag BUN 27 mg/dL L=6 H=25 3094-0 LOINC H CREATININE 1.03 mg/dL L=0.67 H=1.17 2160-0 LOINC BUN/CREATININE RATIO 26.2 3097-3 LOINC AGE 67 years eGFR (non-Afr.Amer) 72 mL/min 60122-3 LOINC eGFR (Afr-Cameroonian) 88 mL/min 66768-[address] ABDOMEN WWO CONTRAST - Co mpleted: 05/14/2022 10:14 LOINC: [facility] [place], [place] [address] PACS CONSTITUTIONAL LAW PROFESSOR REPORT Patient Name: TREV LOWE MRN: Sex: : Age: [id number] M 1955 67 Account: Accession: Admit: StayType: [id number] 05/14/2022 O/P Ordered: Order ID: Submitted: Ordering Provider: 05/14/2022 09:15 [id number] [facility] YASHWALT GRAVES Completed: Technologist: Resulted: 05/14/2022 10:14 JJ 05/14/2022 11:26 Study Description: CT ABDOMEN WWO CONTRAST Study Reason: ABN IMAGING Technique: Imaging Protocol: Axial computed tomography images with coronal and sagittal reformatted images were created and reviewed. Contrast Material: Intravenous: Omnipaque. Contrast volume: 100 mL Comparison: Comparison is made with CT scan from 08/19/2020 and ultrasound from 04/21/2022. FINDINGS: ABDOMEN: Lung Bases: Coronary artery calcifications are present. Liver: Normal density. No measurable mass. Portal, Superior Mesenteric and Splenic Veins: Unremarkable. Gallbladder and biliary tract: No radiodense calculus or biliary ductal dilation. Pancreas: Normal density, no abnormal calcifications or inflammatory process. No evidence of a pancreatic mass is seen. There is no peripancreatic mass identified. Spleen: Normal. Kidneys: Normal size, contour and axis.No radiodense stones or obstructive uropathy. No masses seen. Adrenal glands: There is stable thickening of the left adrenal gland. The right adrenal gland is unremarkable. Lymph nodes: Within normal limits. Abdominal Aorta: Abdominal portion non-dilated. Atherosclerosis is present. Bowel: No obstruction or bowel wall thickening. Peritoneal cavity: No ascites, collection or mesenteric inflammatory response. No free air. Bones: Within normal limits. There is a right convex thoracolumbar scoliosis. Soft Tissues: Within normal limits. IMPRESSION: 1. There is no evidence of a pancreatic or peripancreatic mass. The area of concern on the ultrasound from 04/21/2022 may have represented loops of small bowel. 2. No acute abdominal process. Radiation Optimization: All CT scans at this facility use at least one of these dose optimization techniques: automated exposure control; mA and/or kV adjustment per patient size (includes targeted exams where dose is matched to clinical indication); or iterative reconstruction. Report Digitally Signed by Sherman Markham on 05/14/2022 11:26 AM EST Social History Type Status Start Date End Date Code Code Syst em Smoking History Current some day smoker [id number] SNOMED CT Sex Male Medications Medication Start Date End Date Route Frequency Dose Code Code System Medication Instructions Home Meds Meclizine HCl 25MG Oral Tablet 07/02/2023 Unknown ORAL NEEDED EVERY 6 HOURS 1 TABLET 252365 RxNorm TAKE 1 TABLET ORAL NEEDED EVERY [...] - BENIGN PAROXYSMAL POSITIONAL VERTIGO NYSTAGMUS active 526346509 SNOMED-CT CHRONIC ATRIAL FIBRILLATION (DISORDER) active 882929434 SNOM ED-CT MILD DEHYDRATION active 4257154950425 SNOMED-CT STONE IN KIDNEY 10/30/2022 resolved 93977563 SNO MED-CT ATRIAL FIBRILLATION 10/30/2022 resolved 91426474 SNOMED-CT Allergies and Adverse Reactions Allergy Substance Reaction Severity Start Date Concern Status Code Code System PENICILLINS (CLASS) SWELLING (SNOMED-CT: null) Moderate Active 4298649 SNOMED-CT Plan of Treatment CT ABDOMEN W/ CONTRAST 05/14/2022 US ABDOMEN LIMITED 1 ORGAN 04/21/2022 PRE-OP COVID-19 TESTING 03/30/2022 Encounters Encounter Diagnosis Start Date Code Code Sys tem Abnormal findings on diagnos tic imaging of other abdominal regions, including retroperitoneum 05/14/2022 SNOMED-CT Personal Care Team Section Performer Name Performer Role Active Date Inactive Da te
--- OUTSIDE RECORDS SUMMARY | 2024-04-19 08:39 | XMS_ITS ---
Author Organization Unknown Address [address] [place] [phone] Phone Care Team Providers Care Planogrammer Name Role Phone KALPESH SCHAFFER Attending Unavail able CHE Dorantes Primary Unavailable Social History Type Status Start Date End Date Code Code Syst em Smoking History Current some day smoker 393105956806340 SNOMED CT Sex Male Medications Medication Start Date End Date Route Frequency Dose Code Code System Medication Instructions Home Meds Meclizine HCl 25MG Oral Tablet 07/02/2023 Unknown ORAL NEEDED EVERY 6 HOURS 1 TABLET 100621 RxNorm TAKE 1 TABLET ORAL NEEDED EVERY [...] - BENIGN PAROXYSMAL POSITIONAL VERTIGO NYSTAGMUS active 581417697 SNOMED-CT CHRONIC ATRIAL FIBRILLATION (DISORDER) active 038130610 SNOM ED-CT MILD DEHYDRATION active 8036033659932 SNOMED-CT STONE IN KIDNEY 10/30/2022 resolved 21926318 SNO MED-CT ATRIAL FIBRILLATION 10/30/2022 resolved 74075741 SNOMED-CT Allergies and Adverse Reactions Allergy Substance Reaction Severity Start Date Concern Status Code Code System PENICILLINS (CLASS) SWELLING (SNOMED-CT: null) Moderate Active 3248754 SNOMED-CT Plan of Treatment CT ABDOMEN W/ CONTRAST 05/14/2022 US ABDOMEN LIMITED 1 ORGAN 04/21/2022 PRE-OP COVID-19 TESTING 03/30/2022 Encounters Encounter Diagnosis Start Date Code Code Sys tem Snoring 08/21/2022 SNOMED-CT Personal Care Team Section Performer Name Performer Role Active Date Inactive Da te
--- OUTSIDE RECORDS SUMMARY | 2024-04-19 08:40 | XMS_ITS ---
Author Organization Unknown Address [address] [place] [address] [phone] Phone Care Team Providers Care Type Rolling Machine Operator Name Role Phone NAWAF DENNEY Registered Nurse Unavailable VALERIA Rebolledo Attending Unavailable [facility] Unavailable CHE Dorantes Primary Unavailable UNLISTED PROVIDER - REQUESTED Xhandoff Un available Results COMPREHENSIVE METABOLIC PANE L (CMP) - Collect Date/Time: 10/30/2022 12:22 [facility] ID: [id number] [address] [place], [place], [address] LOINC: 62715-0 Test Value Unit Reference Range Code Code System Flag GLUCOSE 103 mg/dL L=70 H=116 2345-7 LOINC BUN 24 mg/dL L=6 H=25 3094-0 LOINC CREATININE 0.84 mg/dL L=0.67 H=1.17 2160-0 LOINC SODIUM SERUM 138 mmol/L L=136 H=145 2951-2 LOINC POTASSIUM SERUM 3.9 mmol/L L=3.4 H=5.2 2823-3 LOINC CHLORIDE SERUM 103 mmol/L L=96 H=110 2075-0 LOINC CARBON DIOXIDE (CO2) 25 mmol/L L=22 H=34 2028-9 LOINC ANION GAP 9.6 mmol/L 98798-7 LOINC CALCIUM SERUM 9.3 mg/dL L=8.2 H=10.2 15653-9 LOINC BILIRUBIN TOTAL 1.1 mg/dL L=0.0 H=1.3 1975-2 LOINC ALK. PHOS. 277 U/L L=46 H=116 6768-6 LOINC H SGOT (AST) 32 U/L L=15 H=37 1920-8 LOINC SGPT (ALT) 40 U/L L=12 H=78 1742-6 LOINC TOTAL PROTEIN 7.7 gm/dL L=6.0 H=8.0 2885-2 LOINC ALBUMIN 3.4 gm/dL L=3.4 H=5.0 1751-7 LOINC AGE 67 years eGFR (non-Afr.Amer.) 92 mL/min 84617-4 LOINC eGFR (Afr-Djiboutian) 111 mL/min 69770-9 LOINC CBC W/ DIFFERENTIAL* - Colle ct Date/Time: 10/30/2022 12:22 [facility] ID: [id number] [address] [place], [place], [address] LOINC: 42008-9 Test Value Unit Reference Range Code Code System Flag WBC 10.21 th/cmm L=5.00 H=10.00 6690-2 LOINC H NEUT % 65.2 % L=40.0 H=80.0 LYMPH % 14.4 % L=10.0 H=50.0 MONO % 16.5 % L=2.0 H=12.0 35388-3 LOINC H EOS % 3.2 % L=0.0 H=8.0 BASO % 0.4 % L=0.0 H=3.0 IG % 0.3 % L=0.0 H=1.1 2514-8 LOINC NRBC % 0.0 % L=0.0 H=0.0 40281-1 LOINC NEUT abs count 6.7 th/cmm L=1.6 H=8.4 751-8 LOINC LYMPH abs count 1.5 th/cmm L=1.5 H=4.0 731-0 LOINC MONO abs count 1.7 th/cmm L=0.2 H=1.0 742-7 LOINC H EOS abs count 0.3 th/cmm L=0.0 H=0.5 711-2 LOINC BASO abs count 0.0 th/cmm L=0.0 H=0.2 704-7 LOINC IG abs count 0.0 th/cmm L=0.0 H=0.1 52992-6 LOINC NRBC abs count 0.0 mil/cmm L=0.0 H=0.0 21470-5 LOINC RBC 4.83 mil/cmm L=4.30 H=6.20 789-8 LOINC HEMOGLOBIN 16.2 gm/dL L=13.0 H=17.0 718-7 LOINC HEMATOCRIT 47 % L=45 H=52 4544-3 LOINC MCV 98 fL L=82 H=92 787-2 LOINC H MCH 33.5 pg L=27.0 H=31.0 785-6 LOINC H MCHC 34.2 % L=32.0 H=36.0 786-4 LOINC RDW-SD 54.4 fL L=39.0 H=49.0 788-0 LOINC H PLATELET COUNT 142 th/cmm L=150 H=450 777-3 LOINC L Toxic gran 2+ URINALYSIS WITH REFLEX CULT IF POSITIVE* - Collect Date/Time: 10/30/2022 12:00 [facility] ID: [id number] [address] [place], [place], [address] LOINC: 52255-0 Test Value Unit Reference Range Code Code System Flag COLLECTION MODE: CLEAN CATCH 88412-0 LOINC Color YELLOW yellow 5778-6 LOINC Appearance CLEAR clear 5767-9 LOINC Glucose urine NEGATIVE negative mg/dl 78747-7 LOINC Bilirubin NEGATIVE negative 5770-3 LOINC Ketones 15 negative mg/dl 2514-8 LOINC A Spec gravity 1.020 1.003 - 1.030 5811-5 LOINC pH urine 6.0 5.0 - 7.0 2756-5 LOINC Protein NEGATIVE negative mg/dl 45374-0 LOINC Urobilinogen 0.2 <or= 1 EU/dl 50212-9 LOINC Nitrite. NEGATIVE negative 5802-4 LOINC Blood TRACE-IN negative 5794-3 LOINC A Leukocytes. NEGATIVE negative MICROSCOPIC INDICATED WBCs. 0-5 0-5 / hpf 27529-2 LOINC RBCs 0-5 0-5 / hpf 42821-6 LOINC Epith cells 0-5 0-5 / hpf 09305-9 LOINC Cell types squamous Crystals none none Bacteria minimal none Mucus none none 8247-9 LOINC Casts none none /lpf 09379-5 LOINC Other 81173-[address] ABD PELVIS WO IV OR ORAL CONTRAST - Completed: 10/30/2022 12:43 LOINC: [facility] [place], [place] [address] PACS FINANCIAL WELLNESS COACH REPORT Patient Name: TREV LOWE MRN: Sex: : Age: [id number] M [id number] Account: Accession: Admit: StayType: [id number] 10/30/2022 E/R Ordered: Order ID: Submitted: Ordering Provider: 10/30/2022 12:01 [id number] SILVA NEWTON Completed: Technologist: Resulted: 10/30/2022 12:43 SLG 10/30/2022 13:42 Study Description: CT ABD PELVIS WO IV OR ORAL CONTRAST Study Reason: Right Flank Pain TECHNIQUE: Imaging Protocol: Axial computed tomography images with coronal and sagittal reformatted images were created and reviewed CONTRAST MATERIAL: Intravenous: none Oral: None COMPARISON: Prior CT scan performed 05/14/[address] scan 08/19/2020. Prior ultrasound of 04/21/2022 also reviewed. FINDINGS: VISUALIZED LUNG BASES: Mild increased markings in the right lower lobe posterior basal segments. Small 3 mm subpleural nodule is noted in the anterior basal left lower lobe. This is unchanged from 2020. No pleural effusions.. ABDOMEN: There is a tiny amount of fluid in the right paracolic gutter. LIVER: There are no obvious focal hepatic lesions evident on this noninfused study. GALLBLADDER/BILIARY: No obvious gallbladder pathology. CBD is not dilated. PANCREAS: No evidence of pancreatic mass nor dilatation of the pancreatic duct. SPLEEN: Spleen is not enlarged. No obvious intrasplenic lesions. ADRENALS: There are no significant adrenal masses. KIDNEYS:No cysts evident. No solid renal masses. No calculi nor hydronephrosis. No hydroureter. No obvious abnormality in the urinary bladder. ABDOMINAL AORTA: Calcified but not enlarged. LYMPH NODES: There is no retroperitoneal nor para=aortic adenopathy. ABDOMINAL WALL/GI: No evidence of significant anterior abdominal wall hernia. There is a fat only containing bilateral inguinal hernias. There is abundant fecal material in the colon. No evidence of small bowel obstruction. No free air. No abscess. PELVIS: LYMPH NODES: There is no intrapelvic nor inguinal adenopathy. GI: No evidence of appendicitis.No evidence of sigmoid diverticulitis. URINARY BLADDER: No calculi nor obvious masses evident REPRODUCTIVE: Prostate size normal. Seminal vesicles unremarkable. OSSEOUS: No significant osseous lesions and no fractures evident. Multilevel chronic degenerative disc disease. No listhesis. IMPRESSION: 1. There is a small amount of fluid subjacent to the liver in the right paracolic gutter which was not evident on prior studies. There is mild increased density throughout the mesentery but without generalized ascites. 2. No evidence of pancreatic mass, as suspected on prior ultrasound examination. Interval CT scan performed 05/14/2022 also not reveal evidence of a pancreatic mass. Discussed by phone with ER provider Report Digitally Signed by Desmond Vines on 10/30/2022 01:42 PM EDT Social History Type Status Start Date End Date Code Code Syst em Smoking History Current some day smoker [id number] SNOMED CT Sex Male Vital Signs Vital Sign Value Unit [place] Value [place] Unit Date/Time Recent/Initial? Code Code System Body Mass Index 32.55 kg/m2 10/30/2022 11:29 Initial 61241 -5 LOINC Systolic Blood Pressure 140 mm[Hg] 10/30/2022 14:17 Most Recent 8480- 6 LOINC Diastolic Blood Pressure 72 mm[Hg] 10/30/2022 14:17 Most Recent 8462- 4 LOINC Systolic Blood Pressure 149 mm[Hg] 10/30/2022 11:29 Initial 8480- 6 LOINC Diastolic Blood Pressure 74 mm[Hg] 10/30/2022 11:29 Initial 8462- 4 LOINC Body Surface Area 2.35 m2 10/30/2022 11:29 Initial 3140- 1 LOINC Height 182.880 0 cm 72.00 in 10/30/2022 11:29 Initial 8302- 2 LOINC O2 Saturation 97 % 2022 14:17 Most Recent 90567 -5 LOINC O2 Saturation 96 % 2022 11:29 Initial 04443 -5 LOINC Pulse 60.0 /min 10/30/2022 14:17 Most Recent 8867- 4 LOINC Pulse 72.0 /min 10/30/2022 11:29 Initial 8867- 4 LOINC Respiration 16 /min 10/31/19 14:17 Most Recent 9279- 1 LOINC Respiration 20 /min 10/31/19 11:29 Initial 9279- 1 LOINC Temperature 36.4 Neela 97.5 F 10/31/19 14:17 Most Recent 8310- 5 LOINC Temperature 36.9 Neela 98.4 F 10/31/19 11:29 Initial 8310- 5 LOINC Weight 108.86 kg 240.00 lbs 10/30/2022 11:29 Initial 02286 -7 LOINC Medications Medication Start Date End Date Route Frequency Dose Code Code System Medication Instructions Home Meds Meclizine HCl 25MG Oral Tablet 07/02/2023 Unknown ORAL NEEDED EVERY 6 HOURS 1 TABLET 210637 RxNorm TAKE 1 TABLET ORAL NEEDED EVERY [...] Name Date Status Code Code Syste m APPENDEC RPTD APPENDIX ABSC/PRITONITIS complete d [id number] SNOMEDCT Problems Problem Start Date Resolved Date Status Code Code System BPPV - BENIGN PAROXYSMAL POSITIONAL VERTIGO NYSTAGMUS active 529593783 SNOMED-CT CHRONIC ATRIAL FIBRILLATION (DISORDER) active 959380045 SNOM ED-CT MILD DEHYDRATION active 3768350519702 SNOMED-CT STONE IN KIDNEY 10/30/2022 resolved 35735888 SNO MED-CT ATRIAL FIBRILLATION 10/30/2022 resolved 44217210 SNOMED-CT Allergies and Adverse Reactions Allergy Substance Reaction Severity Start Date Concern Status Code Code System PENICILLINS (CLASS) SWELLING (SNOMED-CT: null) Moderate Active 9519891 SNOMED-CT Plan of Treatment CT ABDOMEN W/ CONTRAST 05/14/2022 US ABDOMEN LIMITED 1 ORGAN 04/21/2022 PRE-OP COVID-19 TESTING 03/30/2022 Encounters Encounter Diagnosis Start Date Code Code Sys tem Chest pain 10/30/2022 04063663 SNOMED-CT Personal Care Team Section Performer Name Performer Role Active Date Inactive Da te
--- OUTSIDE RECORDS SUMMARY | 2024-04-19 08:40 | XMS_ITS ---
Author Organization Unknown Address [address] [place] [address] [phone] Phone Care Team Providers Care Impregnator Carbon Products Name Role Phone FREDA Newell Attending Unavailable CHE Dorantes Primary Unavailable Social History Type Status Start Date End Date Code Code Syst em Smoking History Current some day smoker 119583821103590 SNOMED CT Sex Male Medications Medication Start Date End Date Route Frequency Dose Code Code System Medication Instructions Home Meds Meclizine HCl 25MG Oral Tablet 07/02/2023 Unknown ORAL NEEDED EVERY 6 HOURS 1 TABLET 767644 RxNorm TAKE 1 TABLET ORAL NEEDED EVERY [...] - BENIGN PAROXYSMAL POSITIONAL VERTIGO NYSTAGMUS active 821906826 SNOMED-CT CHRONIC ATRIAL FIBRILLATION (DISORDER) active 656311396 SNOM ED-CT MILD DEHYDRATION active 0295835879052 SNOMED-CT STONE IN KIDNEY 10/30/2022 resolved 36616954 SNO MED-CT ATRIAL FIBRILLATION 10/30/2022 resolved 96324431 SNOMED-CT Allergies and Adverse Reactions Allergy Substance Reaction Severity Start Date Concern Status Code Code System PENICILLINS (CLASS) SWELLING (SNOMED-CT: null) Moderate Active 5874531 SNOMED-CT Plan of Treatment CT ABDOMEN W/ CONTRAST 05/14/2022 US ABDOMEN LIMITED 1 ORGAN 04/21/2022 PRE-OP COVID-19 TESTING 03/30/2022 Encounters Encounter Diagnosis Start Date Code Code Sys tem Paroxysmal atrial fibrillation 10/07/2022 SNOMED-CT Personal Care Team Section Performer Name Performer Role Active Date Inactive Da te
--- OUTSIDE RECORDS SUMMARY | 2024-04-19 08:40 | XMS_ITS ---
Author Organization Unknown Address [address] [place] [address] [phone] Phone Care Team Providers Care Lining Cutter Name Role Phone SHAY JERZY Maggie Attending Unavailable CHE Dorantes Primary Unavailable Social History Type Status Start Date End Date Code Code Syst em Smoking History Current some day smoker [id number] SNOMED CT Sex Male Medications Medication Start Date End Date Route Frequency Dose Code Code System Medication Instructions Home Meds Meclizine HCl 25MG Oral Tablet 07/02/2023 Unknown ORAL NEEDED EVERY 6 HOURS 1 TABLET 483368 RxNorm TAKE 1 TABLET ORAL NEEDED EVERY [...] - BENIGN PAROXYSMAL POSITIONAL VERTIGO NYSTAGMUS active 075616786 SNOMED-CT CHRONIC ATRIAL FIBRILLATION (DISORDER) active 808065421 SNOM ED-CT MILD DEHYDRATION active 5174548977969 SNOMED-CT STONE IN KIDNEY 10/30/2022 resolved 21870982 SNO MED-CT ATRIAL FIBRILLATION 10/30/2022 resolved 95677852 SNOMED-CT Allergies and Adverse Reactions Allergy Substance Reaction Severity Start Date Concern Status Code Code System PENICILLINS (CLASS) SWELLING (SNOMED-CT: null) Moderate Active 4232731 SNOMED-CT Plan of Treatment CT ABDOMEN W/ CONTRAST 05/14/2022 US ABDOMEN LIMITED 1 ORGAN 04/21/2022 PRE-OP COVID-19 TESTING 03/30/2022 Encounters Encounter Diagnosis Start Date Code Code Sys tem Bradycardia, unspecified 11/04/2022 SNO MED-CT Personal Care Team Section Performer Name Performer Role Active Date Inactive Da te
--- OUTSIDE RECORDS SUMMARY | 2024-04-19 08:40 | XMS_ITS ---
Author Organization Unknown Address [address] [place] [address] [phone] Phone Care Team Providers Care Container Shop Welder Name Role Phone GUERLINE Avendano Attending Unavailable CHE Dorantes Primary Unavailable Social History Type Status Start Date End Date Code Code Syst em Smoking History Current some day smoker 351213313078557 SNOMED CT Sex Male Medications Medication Start Date End Date Route Frequency Dose Code Code System Medication Instructions Home Meds Meclizine HCl 25MG Oral Tablet 07/02/2023 Unknown ORAL NEEDED EVERY 6 HOURS 1 TABLET 275525 RxNorm TAKE 1 TABLET ORAL NEEDED EVERY [...] - BENIGN PAROXYSMAL POSITIONAL VERTIGO NYSTAGMUS active 786425407 SNOMED-CT CHRONIC ATRIAL FIBRILLATION (DISORDER) active 248916487 SNOM ED-CT MILD DEHYDRATION active 8084326343418 SNOMED-CT STONE IN KIDNEY 10/30/2022 resolved 85146937 SNO MED-CT ATRIAL FIBRILLATION 10/30/2022 resolved 67131404 SNOMED-CT Allergies and Adverse Reactions Allergy Substance Reaction Severity Start Date Concern Status Code Code System PENICILLINS (CLASS) SWELLING (SNOMED-CT: null) Moderate Active 5729595 SNOMED-CT Plan of Treatment CT ABDOMEN W/ CONTRAST 05/14/2022 US ABDOMEN LIMITED 1 ORGAN 04/21/2022 PRE-OP COVID-19 TESTING 03/30/2022 Encounters Encounter Diagnosis Start Date Code Code Sys tem Paroxysmal atrial fibrillation 11/02/2022 173509261 SNOMED-CT Personal Care Team Section Performer Name Performer Role Active Date Inactive Da te
--- OUTSIDE RECORDS SUMMARY | 2024-04-19 08:41 | XMS_ITS ---
Author Organization Unknown Address [address] [place] [address] [phone] Phone Care Team Providers Care Workers Compensation Attorney Name Role Phone EVERT Arguello Attending Unavailable CHE Dorantes Primary Unavailable Social History Type Status Start Date End Date Code Code Syst em Smoking History Current some day smoker 655980560065341 SNOMED CT Sex Male Vital Signs Vital Sign Value Unit Alexander Value Alexander Unit Date/Time Recent/Initial? Code Code System Systolic Blood Pressure 135 mm[Hg] 05/19/2023 11:11 Most Recent 8480-6 LOINC Diastolic Blood Pressure 78 mm[Hg] 05/19/2023 11:11 Most Recent 8462-4 LOINC Systolic Blood Pressure 138 mm[Hg] 05/19/2023 10:50 Initial 8480-6 LOINC Diastolic Blood Pressure 82 mm[Hg] 05/19/2023 10:50 Initial 8462-4 LOINC O2 Saturation 94 % 2023 11:11 Most Recent 73980- 5 LOINC O2 Saturation 92 % 2023 10:50 Initial 32274- 5 LOINC Pulse 99.0 /min 05/19/2023 11:11 Most Recent 8867-4 LOINC Pulse 95.0 /min 05/19/2023 10:50 Initial 8867-4 LOINC Respiration 64 /min 05/19/19 11:11 Most Recent 9279-1 LOINC Respiration 20 /min 05/19/19 10:50 Initial 9279-1 LOINC Medications Medication Start Date End Date Route Frequency Dose Code Code System Medication Instructions Home Meds Meclizine HCl 25MG Oral Tablet 07/02/2023 Unknown ORAL NEEDED EVERY 6 HOURS 1 TABLET 289068 RxNorm TAKE 1 TABLET ORAL NEEDED EVERY [...] Procedures Procedure Name Date Status Code Code Zuhair xiong Colsc Flx w/Rmvl Of Tumor Po lyp Lesion Snare Tq 05/19/2023 completed 73615 CPT Problems Problem Start Date Resolved Date Status Code Code System BPPV - BENIGN PAROXYSMAL POSITIONAL VERTIGO NYSTAGMUS active 147475512 SNOMED-CT CHRONIC ATRIAL FIBRILLATION (DISORDER) active 045318881 SNOM ED-CT MILD DEHYDRATION active 8007369568918 SNOMED-CT STONE IN KIDNEY 10/30/2022 resolved 64635426 SNO MED-CT ATRIAL FIBRILLATION 10/30/2022 resolved 68141463 SNOMED-CT Allergies and Adverse Reactions Allergy Substance Reaction Severity Start Date Concern Status Code Code System PENICILLINS (CLASS) SWELLING (SNOMED-CT: null) Moderate Active 9093145 SNOMED-CT Plan of Treatment CT ABDOMEN W/ CONTRAST 05/14/2022 US ABDOMEN LIMITED 1 ORGAN 04/21/2022 PRE-OP COVID-19 TESTING 03/30/2022 Encounters Encounter Diagnosis Start Date Code Code Sys tem Encounter for screening for malignant neoplasm of colo n 05/19/2023 SNOMED-CT Personal Care Team Section Performer Name Performer Role Active Date Inactive Da te
--- OUTSIDE RECORDS SUMMARY | 2024-04-19 08:41 | XMS_ITS ---
Author Organization Unknown Address [address] [place] [address] [phone] Phone Care Team Providers Care Rn Transplant Name Role Phone EVERT Arguello Attending Unavailable Social History Type Status Start Date End Date Code Code Syst em Smoking History Current some day smoker 132002477833617 SNOMED CT Sex Male Medications Medication Start Date End Date Route Frequency Dose Code Code System Medication Instructions Home Meds Meclizine HCl 25MG Oral Tablet 07/02/2023 Unknown ORAL NEEDED EVERY 6 HOURS 1 TABLET 990451 RxNorm TAKE 1 TABLET ORAL NEEDED EVERY [...] - BENIGN PAROXYSMAL POSITIONAL VERTIGO NYSTAGMUS active 566243143 SNOMED-CT CHRONIC ATRIAL FIBRILLATION (DISORDER) active 298975690 SNOM ED-CT MILD DEHYDRATION active 7692670022671 SNOMED-CT STONE IN KIDNEY 10/30/2022 resolved 52048224 SNO MED-CT ATRIAL FIBRILLATION 10/30/2022 resolved 63682367 SNOMED-CT Allergies and Adverse Reactions Allergy Substance Reaction Severity Start Date Concern Status Code Code System PENICILLINS (CLASS) SWELLING (SNOMED-CT: null) Moderate Active 3655049 SNOMED-CT Plan of Treatment CT ABDOMEN W/ CONTRAST 05/14/2022 US ABDOMEN LIMITED 1 ORGAN 04/21/2022 PRE-OP COVID-19 TESTING 03/30/2022 Encounters Encounter Diagnosis Start Date Code Code Sys tem Screening for malignant neoplasm of colon 05/19/2023 935377858 SNOMED-CT Personal Care Team Section Performer Name Performer Role Active Date Inactive Da te
--- OUTSIDE RECORDS SUMMARY | 2024-04-19 08:41 | XMS_ITS ---
Author Organization Unknown Address [address] [place] [address] [phone] Phone Care Team Providers Care Library Circulation Assistant Name Role Phone SHARRI FERNANDEZ Attending Unavailable CHE Dorantes Primary Unavailable Results THYROID TESTING CASCADE* - C ollect Date/Time: 06/22/2023 09:10 [facility] ID: [id number] [address] [place] [address], [address] LOINC: 3016-3 Test Value Unit Reference Range Code Code System Flag TSH. 1.430 uIU/mL L=0.360 H=3.740 3014-8 LOINC Social History Type Status Start Date End Date Code Code Syst em Smoking History Current some day smoker 228850830788121 SNOMED CT Sex Male Medications Medication Start Date End Date Route Frequency Dose Code Code System Medication Instructions Home Meds Meclizine HCl 25MG Oral Tablet 07/02/2023 Unknown ORAL NEEDED EVERY 6 HOURS 1 TABLET 704521 RxNorm TAKE 1 TABLET ORAL NEEDED EVERY [...] - BENIGN PAROXYSMAL POSITIONAL VERTIGO NYSTAGMUS active 905147539 SNOMED-CT CHRONIC ATRIAL FIBRILLATION (DISORDER) active 200567687 SNOM ED-CT MILD DEHYDRATION active 0282217282311 SNOMED-CT STONE IN KIDNEY 10/30/2022 resolved 64047604 SNO MED-CT ATRIAL FIBRILLATION 10/30/2022 resolved 76946735 SNOMED-CT Allergies and Adverse Reactions Allergy Substance Reaction Severity Start Date Concern Status Code Code System PENICILLINS (CLASS) SWELLING (SNOMED-CT: null) Moderate Active 1198808 SNOMED-CT Plan of Treatment CT ABDOMEN W/ CONTRAST 05/14/2022 US ABDOMEN LIMITED 1 ORGAN 04/21/2022 PRE-OP COVID-19 TESTING 03/30/2022 Encounters Encounter Diagnosis Start Date Code Code Sys tem Paroxysmal atrial fibrillation 06/22/2023 955963014 SNOMED-CT Personal Care Team Section Performer Name Performer Role Active Date Inactive Da te
--- OUTSIDE RECORDS SUMMARY | 2024-04-19 08:41 | XMS_ITS ---
Author Organization Unknown Address [address] [place] [address] [phone] Phone Care Team Providers Care Manager Hospitality Name Role Phone SHAY JERZY Maggie Attending Unavailable CHE Dorantes Primary Unavailable Social History Type Status Start Date End Date Code Code Syst em Smoking History Current some day smoker 106185652599199 SNOMED CT Sex Male Medications Medication Start Date End Date Route Frequency Dose Code Code System Medication Instructions Home Meds Meclizine HCl 25MG Oral Tablet 07/02/2023 Unknown ORAL NEEDED EVERY 6 HOURS 1 TABLET 257481 RxNorm TAKE 1 TABLET ORAL NEEDED EVERY [...] - BENIGN PAROXYSMAL POSITIONAL VERTIGO NYSTAGMUS active 332060022 SNOMED-CT CHRONIC ATRIAL FIBRILLATION (DISORDER) active 367585206 SNOM ED-CT MILD DEHYDRATION active 4449189414111 SNOMED-CT STONE IN KIDNEY 10/30/2022 resolved 37886247 SNO MED-CT ATRIAL FIBRILLATION 10/30/2022 resolved 93196498 SNOMED-CT Allergies and Adverse Reactions Allergy Substance Reaction Severity Start Date Concern Status Code Code System PENICILLINS (CLASS) SWELLING (SNOMED-CT: null) Moderate Active 0133977 SNOMED-CT Plan of Treatment CT ABDOMEN W/ CONTRAST 05/14/2022 US ABDOMEN LIMITED 1 ORGAN 04/21/2022 PRE-OP COVID-19 TESTING 03/30/2022 Encounters Encounter Diagnosis Start Date Code Code Sys tem Obstructive sleep apnea syndrome 10/27/2022 02437324 SNOMED-CT Personal Care Team Section Performer Name Performer Role Active Date Inactive Da te
--- OUTSIDE RECORDS SUMMARY | 2024-04-19 08:42 | XMS_ITS ---
Author Organization Unknown Address [address] [place] [address] [phone] Phone Care Team Providers Care Weigher Packing Name Role Phone FREDA Newell Attending Unavailable CHE Dorantes Primary Unavailable Social History Type Status Start Date End Date Code Code Syst em Smoking History Current some day smoker 537937324990491 SNOMED CT Sex Male Medications Medication Start Date End Date Route Frequency Dose Code Code System Medication Instructions Home Meds Meclizine HCl 25MG Oral Tablet 07/02/2023 Unknown ORAL NEEDED EVERY 6 HOURS 1 TABLET 016509 RxNorm TAKE 1 TABLET ORAL NEEDED EVERY [...] - BENIGN PAROXYSMAL POSITIONAL VERTIGO NYSTAGMUS active 676595691 SNOMED-CT CHRONIC ATRIAL FIBRILLATION (DISORDER) active 378851067 SNOM ED-CT MILD DEHYDRATION active 5840865361226 SNOMED-CT STONE IN KIDNEY 10/30/2022 resolved 98193151 SNO MED-CT ATRIAL FIBRILLATION 10/30/2022 resolved 64262515 SNOMED-CT Allergies and Adverse Reactions Allergy Substance Reaction Severity Start Date Concern Status Code Code System PENICILLINS (CLASS) SWELLING (SNOMED-CT: null) Moderate Active 8469130 SNOMED-CT Plan of Treatment CT ABDOMEN W/ CONTRAST 05/14/2022 US ABDOMEN LIMITED 1 ORGAN 04/21/2022 PRE-OP COVID-19 TESTING 03/30/2022 Encounters Encounter Diagnosis Start Date Code Code Sys tem Paroxysmal atrial fibrillation 10/07/2023 033472538 SNOMED-CT Personal Care Team Section Performer Name Performer Role Active Date Inactive Da te
--- OUTSIDE RECORDS SUMMARY | 2024-04-19 08:42 | XMS_ITS | Encounter Summary ---
Author Organization [facility] Address [address] [place] [address] Care Team Providers Care Program Coordinator Name Role Phone [facility] Primary Care Provider [phone] Reason for Visit * Reason Comments Follow-up laser out kidney sto ne. One week out. Encounter Details Date Type Department Care Team (Late st Contact Info) Description 11/18/2020 13:00 EDT Office Visit [facility] [address] [place] [address] José Luis Byrnes MD [address] [place] [address] [address] [place] [address] Calculus of kidney (Primary Dx) Social History Tobacco Use Types Packs/Day Years Used Date Smoking Tobacco: Some Days Cigars Smokeless Tobacco: Never Interpersonal Safety Answer Date Record ed Physically Hurt Never 12/27/2019 Verbally Threaten Not on file 12/27/2019 Sex and Gender Information Value Date Recorded Sex Assigned at Not on file Legal Sex Male 10:32 EDT Gender Identity Not on file Sexual Orientation Not on file documented as of this encounter Progress Notes * José Luis Byrnes MD - 11/18/2020 1300 EDT HPI:(include onset, location, quality, severity, duration, timing, associating symptoms) Patient is a pleasant 65-year-old male with a remote history of spontaneous calcium oxalate based stone passage status post ureteroscopy and laser lithotripsy for right-sided renal pelvis calculus 10/06/2020 with calculus analysis returning 100% uric acid. Patient had initially presented with gross p ainless hematuria. He removed his stent postoperatively himself which was a nonissue.. Follow-up renal ultrasound on 11/10/2020 is negative for hydronephrosis and negative for stone. Patient has engaged in the ketogenic diet and has lost 100 pounds intentionally. 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 PMH PSH No past medical history on file. No past surgical history on file. Social History Family History Social History Tobacco Use ??? Smoking status: Current Some Day Smoker Types: Cigars ??? Smokeless tobacco: Never Used Substance Use Topics ??? Alcohol use: Not on file No family history on file. Medications Current Outpatient Medications: ??? aspirin 81 mg EC tablet, Take 81 mg by mouth daily., Disp: , Rfl: ??? atorvastatin (LIPITOR) 40 mg tablet, TAKE 1 TABLET BY MOUTH DAILY AT BEDTIME, Disp: , Rfl: ??? dilTIAZem (CARDIZEM SR) 120 mg SR capsule, Take by mouth daily., Disp: , Rfl: ??? Multivitamins with Minerals tablet tablet, Take 1 Tablet by mouth daily., Disp: , Rfl: Allergies Allergies Allergen Reactions ??? Penicillins Review of Systems: A ten point review of systems was performed and was negative except for pertinent positives noted in the HPI Objective/Physical Exam: Vital Signs: There were no vitals taken for this visit. Exam: General Appearance: alert, cooperative Skin: Skin color, temperature, turgor normal. No rashes or lesions Head: Normocephalic, without obvious abnormality, atraumatic Oropharynx: lips, mucosa, and tongue normal; teeth and gums normal Neck: supple, symmetrical, trachea midline Abdomen: Normal, benign. Bladder: Nonpalpable Kidney: Nonpalpable Extremities: extremities warm, atraumatic, no cyanosis or edema positive pulses bilat Musculoskeletal: no joint tenderness, deformity or swelling Neuro: Grossly normal Back: Costovertebral Angle: absent Data Review: image(s) PSA: Lab Results Component Value Date PSA 2.0 08/07/2020 Assessment/Problems: Patient Active Problem List Diagnosis ??? Calculus of kidney Plan: 65-year-old male with uric acid urolithiasis. Discussed management options with the patient, he is averse to medications in general. We discussed the role of potassium citrate and allopurinol in the management of this condition. He prefers to do this without pharmacologic assistance. Recommended a low purine diet, increased vegetable material in the diet and hydration to equal 2.5 L urine output per day. Check 6 months renal ultrasound. 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 His history is inconsistent with Peyronie's disease. No surgical or medical management indicated. There is no immunization history on file for this patient. José Luis Byrnes MD documented in this encounter Plan of Treatment Not on file documented as of this encounter Visit Diagnoses Diagnosis Calculus of kidney- Primary documented in this encounter Care Teams Program Coordinator Relationship Specialty Start Date End Date David [facility] [address] [facility] [place] [place] [address] PCP - General 09/04/20 05/03/23 documented as of this encounter
--- OUTSIDE RECORDS SUMMARY | 2024-04-19 08:42 | XMS_ITS | Encounter Summary ---
Author Organization [facility] Address [address] [place] [address] Care Team Providers Care Project Management Name Role Phone [facility] Primary Care Provider [phone] Shilpa Nixon [employer]CH[employer] Primary Care Provider [phone] Encounter Details Date Type Department Care Team (Late st Contact Info) Description 05/02/2023 Lab Requisition [facility] Pathology & Laboratory Medicine - [facility] [address] [place], [place] [id number] Outr Resulting Lab, Provider Social History Tobacco Use Types Packs/Day Years [...] on file documented as of this encounter Plan of Treatment Not on file documented as of this encounter Procedures Procedure Name Priority Date/Time Associated Diagnosis Comments PSA TOTAL, DIAGNOSTIC Routine 05/02/2023 10:40 EST documented in this encounter Results * PSA TOTAL, DIAGNOSTIC (05/02/2023 10:40 EST) PSA 2.1 <=4.5 ng/mL 05/02/2023 22:41 EST [facility] Blood VENOUS BLOOD / Unknown 05/02/2023 10:40 EST 05/02/2023 21:55 EST Narrative [facility] - 05/02/2023 22:41 EST NOTE: Serum PSA concentration should not be interpreted as absolute evidence for the presence or absence of malignant disease. Assayed on Siemens ADVIA Sportcutaur XPT using chemiluminescent technology.??Values obtained by using different assay methods cannot be used interchangeably. us Provider Outr Resulting Lab CHEMISTRY & BLOOD GA S ORDERABLES Final Result [facility] [address] [place] [address] documented in this encounter Visit Diagnoses Not on filedocumented in this encounter Care Teams Project Management Relationship Specialty Start Date End Date [facility] [address] [place] [address] PCP - General 09/04/20 05/03/23 Shilpa Nixon FNP [address] [place] [phone] PCP - General Family Medicine - Primary Care 05/04/23 documented as of this encounter
--- OUTSIDE RECORDS SUMMARY | 2024-04-19 08:42 | XMS_ITS | Encounter Summary ---
Author Organization [facility] Address [address] [place] [address] Care Team Providers Care Home Office Claim Specialist Name Role Phone Shilpa Nixon Primary Care Provider [phone] Reason for Referral * Radiology Services (Routine/Next Available) - Authorization Not Required Specialty Diagnoses / Procedures Referred By Nova nolasco Referred To Contact Diagnoses Abnormal levels of other serum enzymes Procedures US LIVER WITH ELASTOGRAPHY Shilpa Nixon FNP [address] [place] [address] Phone: tel: fax: [facility] Referral ID Status Reason Start Date Expiration Date Visits Requested Visits Authorized [id number] Authorization Not Required 05/05/2023 1 1 Reason for Visit * Radiology Services (Routine/Next Available) - Authorization Not Required Specialty Diagnoses / Procedures Referred By Nova nolasco Referred To Contact Diagnoses Abnormal levels of other serum enzymes Procedures US LIVER WITH ELASTOGRAPHY Shilpa Nixon FNP [address] [place] [address] Phone: tel: fax: [facility] Referral ID Status Reason Start Date Expiration Date Visits Requested Visits Authorized [id number] Authorization Not Required 05/05/2023 1 1 Encounter Details Date Type Department Care Team (Latest Contact Info) Description 05/31/2023 7:37 EDT - 05/31/2023 23:59 EDT Hospital Encounter [facility] [place] [address] [place] [address] Abnormal levels of other serum enzymes Discharge Disposition: Home or Self Care Social History Tobacco Use Types Packs/Day Years [...] on file documented as of this encounter Medications at Time of Discharge aspirin 81 mg EC tablet Take 81 mg by mouth daily. atorvastatin (LIPITOR) 40 mg tablet TAKE 1 TABLET BY MOUTH DAILY AT BEDTIME 06/18/2020 dilTIAZem (CARDIZEM SR) 120 mg SR capsule Take by mouth daily. 08/09/2020 Multivitamins with Minerals tablet tablet Take 1 Tablet by mouth daily. documented as of this encounter Discharge Disposition Disposition Code Departure Means Destination Home or Self Care documented in this encounter Plan of Treatment Not on file documented as of this encounter Procedures Procedure Name Priority Date/Time Associated Diagnosis Comments US LIVER WITH ELASTOGRAPHY AND ABDOMEN LIMITED Routine 05/31/2023 8:17 EDT Abnormal levels of other serum enzymes documented in this encounter Results * US LIVER WITH ELASTOGRAPHY AND ABDOMEN LIMITED (05/31/2023 8:17 EDT) Anatomical Region Laterality Modality Abdomen, Body Ultrasound 05/31/2023 9:09 EDT Impressions 05/31/2023 9:09 EDT Slightly nodular hepatic contour, compatible with cirrhosis. Median hepatic stiffness: 13.46 kPa Liver Stiffness Value and Recommendations: >13 kPa (2.1 m/s); suggestive of compensated advanced chronic liver disease [id number] Narrative 05/31/2023 9:09 EDT US LIVER WITH ELASTOGRAPHY AND ABDOMEN LIMITED ?? Signs and Symptoms/Comments: ??Abnormal levels of other serum enzymes;R74.8:Abnormal levels of other serum enzymes. Evaluate for compensated advanced chronic liver disease. Comparison: CT abdomen pelvis 08/19/2020 TECHNIQUE: Right upper quadrant abdominal ultrasound was performed with color Doppler imaging. RIGHT UPPER QUADRANT ULTRASOUND FINDINGS: Pancreas: Visible portion of the pancreas is grossly unremarkable. Liver: Liver is normal in size (measuring 17.0 cm). Slightly heterogeneous hepatic echotexture and slightly nodular contour. No focal concerning liver lesion is identified. No perihepatic ascites is visible. Bile Ducts: No biliary dilatation is identified. Common bile duct measures 3.1 mm. Gallbladder: No shadowing calculi identified. Gallbladder wall is normal in thickness (1.6 mm). No pericholecystic fluid is visible. No sonographic Hernandez's sign was elicited. Right Kidney: Right kidney is normal in size, measuring 12.9 cm. No renal mass identified. No shadowing calculus visible. No hydronephrosis. IVC: Visible portion of the proximal IVC is unremarkable. TECHNIQUE: At least 5 liver stiffness measurements were obtained using [employer] [place] E9 2D SWE Shear Wave Elastography using a C1-6 abdominal probe following the SRU guidelines. ?? MEDICAL NECESSITY FOR LIVER ??ELASTOGRAPHY: ??To evaluate liver stiffness. Rule out compensated advanced chronic liver disease. LIVER ELASTOGRAPHY FINDINGS: Number of Acquisitions: 11 (Per SRU guidelines 5 or more acquisitions is recommended) Median: 13.46 kPa, (2.12 m/sec) E IQR/Median: 17.4% (kPa </= 30%) V IQR/Median: 8.8% (m/s </= 15%) Procedure Note Samir Frey MD - 05/31/2023 US LIVER WITH ELASTOGRAPHY AND ABDOMEN LIMITED Signs and Symptoms/Comments: Abnormal levels of other serumenzymes;R74.8:Abnormal levels of other serum enzymes. Evaluate forcompensated advanced chronic liver disease. Comparison: CT abdomen pelvis 08/19/2020 TECHNIQUE: Right upper quadrant abdominal ultrasound was performed withcolor Doppler imaging. RIGHT UPPER QUADRANT ULTRASOUND FINDINGS: Pancreas: Visible portion of the pancreas is grossly unremarkable. Liver: Liver is normal in size (measuring 17.0 cm). Slightly heterogeneoushepatic echotexture and slightly nodular contour. No focal concerningliver lesion is identified. No perihepatic ascites is visible. Bile Ducts: No biliary dilatation is identified. Common bile duct measures3.1 mm. Gallbladder: No shadowing calculi identified. Gallbladder wall is normalin thickness (1.6 mm). No pericholecystic fluid is visible. No sonographicMurphy's sign was elicited. Right Kidney: Right kidney is normal in size, measuring 12.9 cm. No renalmass identified. No shadowing calculus visible. No hydronephrosis. IVC: Visible portion of the proximal IVC is unremarkable. TECHNIQUE: At least 5 liver stiffness measurements were obtained usingLOGIQ E9 2D SWE Shear Wave Elastography using a C1-6 abdominal probefollowing the SRU guidelines. MEDICAL NECESSITY FOR LIVER ELASTOGRAPHY: To evaluate liver stiffness.Rule out compensated advanced chronic liver disease. LIVER ELASTOGRAPHY FINDINGS: Number of Acquisitions: 11 (Per SRU guidelines 5 or more acquisitions isrecommended) Median: 13.46 kPa, (2.12 m/sec) E IQR/Median: 17.4% (kPa </= 30%) V IQR/Median: 8.8% (m/s </= 15%) IMPRESSION Slightly nodular hepatic contour, compatible with cirrhosis. Median hepatic stiffness: 13.46 kPa Liver Stiffness Value and Recommendations: >13 kPa (2.1 m/s); suggestiveof compensated advanced chronic liver disease [id number] us Shilpa ARAUJO IMG US ORDERABLES Final Resu lt documented in this encounter Visit Diagnoses Diagnosis Abnormal levels of other serum enzymes documented in this encounter Care Teams Home Office Claim Specialist Relationship Specialty Start Date End Date Shilpa Nixon FNP [address] [place] [id number] PCP - General Family Medicine - Primary Care 05/04/23 documented as of this encounter
--- OUTSIDE RECORDS SUMMARY | 2024-04-19 08:42 | XMS_ITS | Encounter Summary ---
Author Organization [facility] Address [address] [place] [address] Care Team Providers Care Patient Account Liaison Name Role Phone [place] [facility] Primary Care Provider [phone] Reason for Referral * Referral (Routine/Next Available) - Closed Specialty Diagnoses / Procedures Referred By Contact Referred To Contact Gastroenterology and Hepatology Diagnoses Steatosis of liver Procedures VIBRATION CONTROLLED TRANSIENT ELASTOGRAPHY (VCTE) Shilpa Nixon FNP [address] [place] [address] Phone: tel:[phone] fax:[phone] [facility] [address] [address] Phone: tel: fax: Referral ID Status Reason Start Date Expiration Date Visits Re quested Visits Authorized [id number] Closed 05/19/2022 1 1 Encounter Details Date Type Department Care Team (Latest Contact Info) Description 05/19/[address] [facility] Gastroenterology [address] [id number] Shilpa Nixon FNP [address] [place] [address] Steatosis of liver (Primary Dx) Social History Tobacco Use Types [...] as of this encounter Plan of Treatment Scheduled Orders Name Type Priority Associated Diagnoses Orde r Schedule VIBRATION CONTROLLED TRANSIE NT ELASTOGRAPHY (VCTE) GI Routine Steatosis of liver Ordered: 05/19/2022 documented as of this encounter Visit Diagnoses Diagnosis Steatosis of liver- Primary Other chronic nonalcoholic liver disease documented in this encounter Care Teams Patient Account Liaison Relationship Specialty Start Date End Date David [facility] [address] [facility] [address] PCP - General 09/04/20 05/03/23 documented as of this encounter
--- OUTSIDE RECORDS SUMMARY | 2024-04-19 08:42 | XMS_ITS ---
Author Organization Unknown Address [address] [place] [phone] Phone Care Team Providers Care Rehab Manager Name Role Phone FAUSTO MOSS Registered Nurse Unavailable DUDLEY Serrano Attending Unavailable CHE Dorantes Primary Unavailable UNLISTED PROVIDER - REQUESTED Xhandoff Un available Results TROPONIN HIGH SENSITIVITY* - Collect Date/Time: 07/02/2023 16:24 [facility] ID: [id number] [address] [place] [address], [address] LOINC: 23233-5 Test Value Unit Reference Range Code Code System Flag TROPONIN HS 8.2 pg/mL L=0.0 H=60.4 Specimen seq. ADM. THYROID TESTING CASCADE* - C ollect Date/Time: 07/02/2023 16:24 [facility] ID: [id number] [address] [place] [address], [address] LOINC: 3016-3 Test Value Unit Reference Range Code Code System Flag TSH. 1.454 uIU/mL L=0.360 H=3.740 3014-8 LOINC MAGNESIUM SERUM* - Collect D ate/Time: 07/02/2023 16:24 [facility] ID: [id number] [address] [place] [address], [address] LOINC: 83954-4 Test Value Unit Reference Range Code Code System Flag MAGNESIUM 1.9 mg/dL L=1.8 H=2.4 35288-9 LOINC COMPREHENSIVE METABOLIC PANE L (CMP) - Collect Date/Time: 07/02/2023 16:24 [facility] ID: [id number] [address] [place], [place], [address] LOINC: 72345-1 Test Value Unit Reference Range Code Code System Flag GLUCOSE 97 mg/dL L=70 H=116 2345-7 LOINC BUN 29 mg/dL L=6 H=25 3094-0 LOINC H CREATININE 1.09 mg/dL L=0.67 H=1.17 2160-0 LOINC SODIUM SERUM 140 mmol/L L=136 H=145 2951-2 LOINC POTASSIUM SERUM 4.0 mmol/L L=3.4 H=5.2 2823-3 LOINC CHLORIDE SERUM 104 mmol/L L=96 H=110 2075-0 LOINC CARBON DIOXIDE (CO2) 27 mmol/L L=22 H=34 2028-9 LOINC ANION GAP 9.0 mmol/L 67499-7 LOINC CALCIUM SERUM 8.9 mg/dL L=8.2 H=10.2 50753-1 LOINC BILIRUBIN TOTAL 0.7 mg/dL L=0.0 H=1.3 1975-2 LOINC ALK. PHOS. 269 U/L L=46 H=116 6768-6 LOINC H SGOT (AST) 29 U/L L=15 H=37 1920-8 LOINC SGPT (ALT) 37 U/L L=12 H=78 1742-6 LOINC TOTAL PROTEIN 7.4 gm/dL L=6.0 H=8.0 2885-2 LOINC ALBUMIN 3.4 gm/dL L=3.4 H=5.0 1751-7 LOINC AGE 68 years eGFR (non-Afr.Amer.) 68 mL/min 75978-1 LOINC eGFR (Afr-Chilean) 82 mL/min 00637-5 LOINC CBC W/ DIFFERENTIAL* - Colle ct Date/Time: 07/02/2023 16:24 [facility] ID: [id number] [address] [place], [place], [address] LOINC: 63679-2 Test Value Unit Reference Range Code Code System Flag WBC 8.14 th/cmm L=5.00 H=10.00 6690-2 LOINC NEUT % 62.7 % L=40.0 H=80.0 LYMPH % 19.3 % L=10.0 H=50.0 MONO % 11.9 % L=2.0 H=12.0 45561-0 LOINC EOS % 5.5 % L=0.0 H=8.0 BASO % 0.4 % L=0.0 H=3.0 IG % 0.2 % L=0.0 H=1.1 2514-8 LOINC NRBC % 0.0 % L=0.0 H=0.0 87945-8 LOINC NEUT abs count 5.1 th/cmm L=1.6 H=8.4 751-8 LOINC LYMPH abs count 1.6 th/cmm L=1.5 H=4.0 731-0 LOINC MONO abs count 1.0 th/cmm L=0.2 H=1.0 742-7 LOINC EOS abs count 0.5 th/cmm L=0.0 H=0.5 711-2 LOINC BASO abs count 0.0 th/cmm L=0.0 H=0.2 704-7 LOINC IG abs count 0.0 th/cmm L=0.0 H=0.1 19602-5 LOINC NRBC abs count 0.0 mil/cmm L=0.0 H=0.0 45889-4 LOINC RBC 4.46 mil/cmm L=4.30 H=6.20 789-8 LOINC HEMOGLOBIN 15.0 gm/dL L=13.0 H=17.0 718-7 LOINC HEMATOCRIT 44 % L=45 H=52 4544-3 LOINC L MCV 98 fL L=82 H=92 787-2 LOINC H MCH 33.6 pg L=27.0 H=31.0 785-6 LOINC H MCHC 34.4 % L=32.0 H=36.0 786-4 LOINC RDW-SD 54.4 fL L=39.0 H=49.0 788-0 LOINC H PLATELET COUNT 160 th/cmm L=150 H=450 777-3 LOINC BNP (PRO-B NATRIURETIC PEPTI DE) - Collect Date/Time: 07/02/2023 16:24 [facility] ID: [id number] [address] [place], [place], [address] LOINC: 63418-9 Test Value Unit Reference Range Code Code System Flag NT-proBNP 773.0 pg/mL L=0.0 H=125 11893-9 LOINC H Social History Type Status Start Date End Date Code Code Syst em Smoking History Current some day smoker 305328106650176 SNOMED CT Sex Male Vital Signs Vital Sign Value Unit [place] Value [place] Unit Date/Time Recent/Initial? Code Code System Body Mass Index 34.31 kg/m2 07/02/2023 16:29 Initial 80810 -5 LOINC Systolic Blood Pressure 127 mm[Hg] 07/02/2023 16:29 Initial 8480- 6 LOINC Diastolic Blood Pressure 83 mm[Hg] 07/02/2023 16:29 Initial 8462- 4 LOINC Body Surface Area 2.41 m2 07/02/2023 16:29 Initial 3140- 1 LOINC Height 182.880 0 cm 72.00 in 07/02/2023 16:29 Initial 8302- 2 LOINC O2 Saturation 95 % 2023 16:29 Initial 86344 -5 LOINC Pulse 88.0 /min 07/02/2023 16:29 Initial 8867- 4 LOINC Respiration 16 /min 07/02/19 24 16:29 Initial 9279- 1 LOINC Temperature 35.7 Neela 96.3 F 07/02/19 16:29 Initial 8310- 5 LOINC Weight 114.76 kg 253.00 lbs 07/02/2023 16:29 Initial 54521 -7 LOINC Medications Medication Start Date End Date Route Frequency Dose Code Code System Medication Instructions Home Meds Meclizine HCl 25MG Oral Tablet 07/02/2023 Unknown ORAL NEEDED EVERY 6 HOURS 1 TABLET 611477 RxNorm TAKE 1 TABLET ORAL NEEDED EVERY [...] Name Date Status Code Code Syste m Umbilical hernia completed 141802588 SNOMEDCT Problems Problem Start Date Resolved Date Status Code Code System BPPV - BENIGN PAROXYSMAL POSITIONAL VERTIGO NYSTAGMUS active 686623052 SNOMED-CT CHRONIC ATRIAL FIBRILLATION (DISORDER) active 373348623 SNOM ED-CT MILD DEHYDRATION active 0075029522689 SNOMED-CT STONE IN KIDNEY 10/30/2022 resolved 95276805 SNO MED-CT ATRIAL FIBRILLATION 10/30/2022 resolved 18328357 SNOMED-CT Allergies and Adverse Reactions Allergy Substance Reaction Severity Start Date Concern Status Code Code System PENICILLINS (CLASS) SWELLING (SNOMED-CT: null) Moderate Active 5015312 SNOMED-CT Plan of Treatment CT ABDOMEN W/ CONTRAST 05/14/2022 US ABDOMEN LIMITED 1 ORGAN 04/21/2022 PRE-OP COVID-19 TESTING 03/30/2022 OUTPATIENT PLAN: Additional Physician Instructions: Increase fluids as discussed. Your prescription was electronically sent to [facility] in [place] Discharge Medications Medication Dosage Route Frequency Prescribing MD Special Instructions Meclizine HCl 25MG Oral Tablet 1 TABLET ORAL NEEDED EVERY 6 HOURS DUDLEY Serrano TAKE 1 TABLET ORAL NEEDED EVERY 6 HOURS FOR Dizziness HOSPITAL COURSE AND TESTING: Medications given this visit: Ordered & Completed Meds Table Ordered Medication Start Date/Time Dosage Route Frequency Status SODIUM CHLORIDE 0.9% 500ML 07/02/2023 16:41 INTRAVENOUS X1 completed MECLIZINE TABLET: 25MG 07/02/2023 16:41 25 MG ORAL X1 completed MECLIZINE TABLET: 25MG 07/02/2023 18:09 50 MG ORAL X1 TO GO Lab Results: This Visit Test Results Units Reference Range Ordered Collected Status NT-proBNP 773.0 H pg/mL L=0.0 H=125 07/02/2023 16:41 07/02/2023 16:24 final WBC 8.14 th/cmm L=5.00 H=10.00 07/02/2023 16:41 07/02/2023 16:24 final NEUT % 62.7 % L=40.0 H=80.0 07/02/2023 16:41 07/02/2023 16:24 final LYMPH % 19.3 % L=10.0 H=50.0 07/02/2023 16:41 07/02/2023 16:24 final MONO % 11.9 % L=2.0 H=12.0 07/02/2023 16:41 07/02/2023 16:24 final EOS % 5.5 % L=0.0 H=8.0 07/02/2023 16:41 07/02/2023 16:24 final BASO % 0.4 % L=0.0 H=3.0 07/02/2023 16:41 07/02/2023 16:24 final IG % 0.2 % L=0.0 H=1.1 07/02/2023 16:41 07/02/2023 16:24 final NRBC % 0.0 % L=0.0 H=0.0 07/02/2023 16:41 07/02/2023 16:24 final NEUT abs count 5.1 th/cmm L=1.6 H=8.4 07/02/2023 16:41 07/02/2023 16:24 final LYMPH abs count 1.6 th/cmm L=1.5 H=4.0 07/02/2023 16:41 07/02/2023 16:24 final MONO abs count 1.0 th/cmm L=0.2 H=1.0 07/02/2023 16:41 07/02/2023 16:24 final EOS abs count 0.5 th/cmm L=0.0 H=0.5 07/02/2023 16:41 07/02/2023 16:24 final BASO abs count 0.0 th/cmm L=0.0 H=0.2 07/02/2023 16:41 07/02/2023 16:24 final IG abs count 0.0 th/cmm L=0.0 H=0.1 07/02/2023 16:41 07/02/2023 16:24 final NRBC abs count 0.0 mil/cmm L=0.0 H=0.0 07/02/2023 16:41 07/02/2023 16:24 final RBC 4.46 mil/cmm L=4.30 H=6.20 07/02/2023 16:41 07/02/2023 16:24 final HEMOGLOBIN 15.0 gm/dL L=13.0 H=17.0 07/02/2023 16:41 07/02/2023 16:24 final HEMATOCRIT 44 L % L=45 H=52 07/02/2023 16:41 07/02/2023 16:24 final MCV 98 H fL L=82 H=92 07/02/2023 16:41 07/02/2023 16:24 final MCH 33.6 H pg L=27.0 H=31.0 07/02/2023 16:41 07/02/2023 16:24 final MCHC 34.4 % L=32.0 H=36.0 07/02/2023 16:41 07/02/2023 16:24 final RDW-SD 54.4 H fL L=39.0 H=49.0 07/02/2023 16:41 07/02/2023 16:24 final PLATELET COUNT 160 th/cmm L=150 H=450 07/02/2023 16:41 07/02/2023 16:24 final GLUCOSE 97 mg/dL L=70 H=116 07/02/2023 16:41 07/02/2023 16:24 final BUN 29 H mg/dL L=6 H=25 07/02/2023 16:41 07/02/2023 16:24 final CREATININE 1.09 mg/dL L=0.67 H=1.17 07/02/2023 16:41 07/02/2023 16:24 final SODIUM SERUM 140 mmol/L L=136 H=145 07/02/2023 16:41 07/02/2023 16:24 final POTASSIUM SERUM 4.0 mmol/L L=3.4 H=5.2 07/02/2023 16:41 07/02/2023 16:24 final CHLORIDE SERUM 104 mmol/L L=96 H=110 07/02/2023 16:41 07/02/2023 16:24 final CARBON DIOXIDE (CO2) 27 mmol/L L=22 H=34 07/02/2023 16:41 07/02/2023 16:24 final ANION GAP 9.0 mmol/L 07/02/2023 16:41 07/02/2023 16:24 final CALCIUM SERUM 8.9 mg/dL L=8.2 H=10.2 07/02/2023 16:41 07/02/2023 16:24 final BILIRUBIN TOTAL 0.7 mg/dL L=0.0 H=1.3 07/02/2023 16:41 07/02/2023 16:24 final ALK. PHOS. 269 H U/L L=46 H=116 07/02/2023 16:41 07/02/2023 16:24 final SGOT (AST) 29 U/L L=15 H=37 07/02/2023 16:41 07/02/2023 16:24 final SGPT (ALT) 37 U/L L=12 H=78 07/02/2023 16:41 07/02/2023 16:24 final TOTAL PROTEIN 7.4 gm/dL L=6.0 H=8.0 07/02/2023 16:41 07/02/2023 16:24 final ALBUMIN 3.4 gm/dL L=3.4 H=5.0 07/02/2023 16:41 07/02/2023 16:24 final AGE 68 years 07/02/2023 16:41 07/02/2023 16:24 final eGFR (non-Afr.Amer.) 68 mL/min 07/02/2023 16:41 07/02/2023 16:24 final eGFR (Afr-Chilean) 82 mL/min 07/02/2023 16:41 07/02/2023 16:24 final MAGNESIUM 1.9 mg/dL L=1.8 H=2.4 07/02/2023 16:41 07/02/2023 16:24 final TSH. 1.454 uIU/mL L=0.360 H=3.740 07/02/2023 16:41 07/02/2023 16:24 final TROPONIN HS 8.2 pg/mL L=0.0 H=60.4 07/02/2023 16:41 07/02/2023 16:24 final Specimen seq. ADM. ADM. 07/02/2023 16:41 07/02/2023 16:24 final EKG ORDER TRACING 12 LEAD 07/02/2023 16:15 07/02/2023 16:15 final Encounters Encounter Diagnosis Start Date Code Code Sys tem Benign paroxysmal vertigo, unspecified ear 07/02/2023 SNOMED-CT Personal Care Team Section Performer Name Performer Role Active Date Inactive Da te
--- OUTSIDE RECORDS SUMMARY | 2024-04-19 08:42 | XMS_ITS | Referral Summary ---
Author Organization [facility] Address [address] [place] [address] Care Team Providers Care Supervisor Facepiece Line Name Role Phone Shilpa Nixon ELECTRONIC CALIBRATION TECHNICIAN Primary Care Provider Allergies Active Allergy Reactions Criticality Noted Date Comments Penicillins 09/08/2020 Medications dilTIAZem (CARDIZEM SR) 120 mg SR capsule Take by mouth daily. 08/09/2020 Active atorvastatin (LIPITOR) 40 mg tablet TAKE 1 TABLET BY MOUTH DAILY AT BEDTIME 06/18/2020 Active Multivitamins with Minerals tablet tablet Take 1 Tablet by mouth daily. Active aspirin 81 mg EC tablet Take 81 mg by mouth daily. Active Active Problems Problem Noted Date Diagnosed Date Calculus of kidney 11/18/2020 Social History Tobacco Use Types Packs/Day Years Used Date Smoking Tobacco: Some Days Cigars Smokeless Tobacco: Never Interpersonal Safety Answer Date Record ed Physically Hurt Never 12/27/2019 Verbally Threaten Not on file 12/27/2019 Sex and Gender Information Value Date Recorded Sex Assigned at Not on file Legal Sex Male 10:32 EDT Gender Identity Not on file Sexual Orientation Not on file Plan of Treatment Not on file Procedures Procedure Name Priority Date/Time Associated Diagnosis Comments HEPATITIS C AB W REFLEX TO HCV RNA BY PCR Routine 04/18/2019 9:15 EST from Last 3 Months or Most Recently Relevant to Health Maintenance Results * HEPATITIS C AB W REFLEX TO HCV RNA BY PCR (04/18/2019 9:15 EST) Hep C Antibody Negative Negative 04/20/2019 12:04 EST [facility] Blood VENOUS BLOOD / Unknown 04/18/2019 9:15 EST 04/19/2019 15:38 EST us Provider Unknown CHEMISTRY & BLOOD GAS ORDERA BLES Final Result [facility] [address] [place] [address] from Last 3 Months or Most Recently Relevant to Health Maintenance Insurance [facility] OOS [facility] OOS Care Teams Supervisor Facepiece Line Relationship Specialty Start Date End Date Shilpa Nixon FNP [address] [place] [address] PCP - General Family Medicine - Primary Care 05/04/23
--- OUTSIDE RECORDS SUMMARY | 2024-04-19 08:42 | XMS_ITS | Clinical Summary ---
Author Organization [facility] Address [address] [place] [address] Care Team Providers Care Cloth Hand Name Role Phone Shilpa Nixon PLANT WORKER Primary Care Provider Allergies Active Allergy Reactions [...] on file Sexual Orientation Not on file Obstetrics History Plan of Treatment Health Maintenance Due Date Last Done Comments Fall Risk Screening 2022 COVID-19 Vaccine (2023-25 season) 2023 RSV Immunization ( o r 60+ Years) (1 - 1-dose 75+ series) 2032 Hepatitis C Screen Completed 04/18/2019 Procedures Procedure Name Priority Date/Time Associated Diagnosis Comments HEPATITIS C AB W REFLEX TO HCV RNA BY PCR Routine 04/18/2019 9:15 EST from Last 3 Months or Most Recently Relevant to Health Maintenance Results * HEPATITIS C AB W REFLEX TO HCV RNA BY PCR (04/18/2019 9:15 EST) Hep C Antibody Negative Negative 04/20/2019 12:[address] [facility] Blood VENOUS BLOOD / Unknown 04/18/2019 9:15 EST 04/19/2019 15:38 EST us Provider Unknown CHEMISTRY & BLOOD GAS ORDERA BLES Final Result [facility] [address] [place] [address] from Last 3 Months or Most Recently Relevant to Health Maintenance Insurance [employer] Care Teams Cloth Hand Relationship Specialty Start Date End Date Shilpa Nixon FNP [address] [place] [address] PCP - General Family Medicine - Primary Care 05/04/23
--- OUTSIDE RECORDS SUMMARY | 2024-04-19 08:42 | XMS_ITS ---
Author Organization Unknown Address [address] [place] [phone] Phone Care Team Providers Care Environmental Compliance Technician Name Role Phone FREDA Newell Attending Unavailable CHE Dorantes Primary Unavailable Social History Type Status Start Date End Date Code Code Syst em Smoking History Current some day smoker 556975267225670 SNOMED CT Sex Male Medications Medication Start Date End Date Route Frequency Dose Code Code System Medication Instructions Home Meds Meclizine HCl 25MG Oral Tablet 07/02/2023 Unknown ORAL NEEDED EVERY 6 HOURS 1 TABLET 912593 RxNorm TAKE 1 TABLET ORAL NEEDED EVERY [...] - BENIGN PAROXYSMAL POSITIONAL VERTIGO NYSTAGMUS active 325800367 SNOMED-CT CHRONIC ATRIAL FIBRILLATION (DISORDER) active 267664875 SNOM ED-CT MILD DEHYDRATION active 2446976411496 SNOMED-CT STONE IN KIDNEY 10/30/2022 resolved 89999914 SNO MED-CT ATRIAL FIBRILLATION 10/30/2022 resolved 65578977 SNOMED-CT Allergies and Adverse Reactions Allergy Substance Reaction Severity Start Date Concern Status Code Code System PENICILLINS (CLASS) SWELLING (SNOMED-CT: null) Moderate Active 8702025 SNOMED-CT Plan of Treatment CT ABDOMEN W/ CONTRAST 05/14/2022 US ABDOMEN LIMITED 1 ORGAN 04/21/2022 PRE-OP COVID-19 TESTING 03/30/2022 Encounters Encounter Diagnosis Start Date Code Code Sys tem Paroxysmal atrial fibrillation 04/02/2024 199196846 SNOMED-CT Personal Care Team Section Performer Name Performer Role Active Date Inactive Da te
--- OUTSIDE RECORDS SUMMARY | 2024-04-19 08:43 | XMS_ITS | Encounter Summary ---
Author Organization [facility] Address [address] [place] [address] Care Team Providers Care Software Tools Engineer Name Role Phone [facility] Primary Care Provider [phone] Encounter Details Date Type Department Care Team (Late st Contact Info) Description 10/10/2020 Orders Only [facility] [address] [place], [place] [id number] Mark Wakefield MD [address] [place] [address] Nephrolithiasis, uric acid (Primary Dx) Social History Tobacco Use Types [...] as of this encounter Progress Notes * Mark Wakefield MD - 10/10/2020 1000 EDT I called patient and notified him of stone composition of 100% uric acid. We reviewed prevention options such as increasing hydration, decreasing animal protein, and starting K citrate. He states he is on a low carb diet which has resulted in >80lbs weight loss recently. He declines K citrate for now but plans to start adding lemon juice to water he drinks. He is planning to remove his own stent on Tuesday10/14/20. I am ordering an ultrasound to be don 4-6 weeks after stent removal, can you please call him to schedule follow up after that? I would also like him to follow up to review kidney stone prevention, and to address concerns he raised about penile curvature. Thank you * Seema Santos - 10/10/2020 1000 EDT Called and spoke with Bob scheduled a follow up appointment with Dr. Byrnes documented in this encounter Plan of Treatment Not on file documented as of this encounter Visit Diagnoses Diagnosis Nephrolithiasis, uric acid- Primary Uric acid nephrolithiasis documented in this encounter Care Teams Software Tools Engineer Relationship Specialty Start Date End Date [facility] [address] [facility] [place] [place] [address] PCP - General 09/04/20 05/03/23 documented as of this encounter
--- OUTSIDE RECORDS SUMMARY | 2024-04-19 08:43 | XMS_ITS | Encounter Summary ---
Author Organization [facility] Address [address] [place] [address] Care Team Providers Care Barrel Cutter Name Role Phone [facility] Primary Care Provider [phone] Shilpa Nixon WELT DRAWER Primary Care Provider Encounter Details Date Type Department Care Team (Late st Contact Info) Description 10/02/[address] [facility] Pathology & Laboratory Medicine - [facility] [address] [place] [address] Outr Resulting Lab, Provider Social History Tobacco [...] Procedure Name Priority Date/Time Associated Diagnosis Comments ZZCOVID-19 TEST [facility] PCR Today 10/02/2020 8:15 EDT COVID-19 TESTING Routine 10/02/2020 8:15 EDT documented in this encounter Results * COVID-19 TEST [facility] PCR (10/02/2020 8:15 EDT) Swab ENTIRE NASOPHARYNX / Unknown 10/02/2020 8:15 EDT 10/02/2020 11:30 EDT us Provider Outr Resulting Lab MICROBIOLOGY - GENER AL ORDERABLES Final Result Performing Organization Address [facility]/ZIP Co de Phone Number [facility] [address] [place] [address] * COVID-19 TESTING (10/02/2020 8:15 EDT) COVID-19 rt-PCR Result Negative Negative 10/03/2020 13:52 EDT [facility] Comment: This test has not been FDA cleared or approved. This test has been authorized by FDA under an EUA for use by authorized laboratories. This test has been authorized only for detection of nucleic acid from 2019-nCoV, not for any other viruses or pathogens. This test is only authorized for the duration of the declaration that circumstances exist justifying the authorization of emergency use of in vitro diagnostic tests for detection and/or diagnosis of 2019-nCoV under section 564(b)(1) of Act, 21 U.S.C ?? 360bbb-3(b) (1), unless the authorization is terminated or revoked sooner. Negative results do not preclude 2019-nCoV infection and should not be used as the sole basis for treatment or other patient management decisions. Negative results must be combined with clinical observations, patient history, and epidemiological information. Testing was performed using the margi SARS-CoV-2 assay ([employer] on the Margi 6800 System Performing Lab Margi 6800 [facility] Lab 10/03/2020 13:52 EDT [facility] Swab 10/02/2020 8:15 EDT 10/02/2020 11:30 EDT us Provider Outr Resulting Lab MICROBIOLOGY - GENER AL ORDERABLES Final Result Performing Organization Address [facility]/ZIP Co de Phone Number [facility] [address] [place] [address] documented in this encounter Visit Diagnoses Not on filedocumented in this encounter Care Teams Barrel Cutter Relationship Specialty Start Date End Date [facility] [address] [place] [address] PCP - General 09/04/20 05/03/23 Shilpa Nixon, WELT DRAWER [address] [place] [phone] PCP - General Family Medicine - Primary Care 05/04/23 documented as of this encounter
--- OUTSIDE RECORDS SUMMARY | 2024-04-19 08:43 | XMS_ITS | Encounter Summary ---
Author Organization [facility] Address [address] [place] [address] Care Team Providers Care Food Handler Name Role Phone [facility] Primary Care Provider [phone] Reason for Visit * Reason Comments New Patient Visit gross hematuria Encounter Details Date Type Department Care Team (Late st Contact Info) Description 09/08/2020 15:00 EDT Office Visit [facility] [address] [place] [address] Gerardo hPoenix MD [address] [place] [address] [place] [address] Gross hematuria (Primary Dx); Ureteral stone; Peyronie disease Social History Tobacco Use Types Packs/Day Years [...] as of this encounter Progress Notes * Gerardo Phoenix MD - 09/08/2020 1500 EDT Chief Complaint: Chief Complaint Patient presents with ??? New Patient Visit gross hematuria Reason for Consult: Urology was asked to see Bob at the request of [facility] David for evaluation of ureteral stone. HPI: Bob is a 65 y.o. male with recent gross hematuria after lifting heavy loads at the [email or web address]. Had imaging: stone in prox right ureter. No evidence of renal or bladder mass. When reducedhis workload, no more hematuria. No UTI or hematuria. Smokes cigars. Notes chronic penile curvature. Remote hx previous stones. No anti coagulants.. There is no problem list on file for this patient. PMH PSH No past medical history on [...] Allergen Reactions ??? Penicillins Review of Systems: Review of Systems Constitutional: Negative. HENT: Negative. Respiratory: Negative. Cardiovascular: Negative. Gastrointestinal: Negative. Genitourinary: Positive for hematuria. Musculoskeletal: Positive for joint pain. Skin: Negative. Neurological: Negative. Endo/Heme/Allergies: Negative. Psychiatric/Behavioral: Negative. Objective/Physical Exam: Vital Signs: There were no vitals taken for this visit. Exam: Constitutional: Alert, in no distress. Respiratory: Respirations unlabored. CTA Cardiovascular: Pulse regular. Reg S1S2 Gastrointestinal: Abdomen soft, non tender. Genital: Circumcised phallus with patent meatus at the tip, plaque prox to . Testes descended bilaterally without masses. Rectal: declined: states recently done by PCP Musculoskeletal: Extremities warm without edema. Skin: Skin warm and dry. Neuro: alert and oriented Data Review: NA Labs: MICRO (7day): No results found for this or any previous visit (from the past 24 hour(s)). Other Studies: N/A Impression: Gross hematuria: imaging shows stone prox right ureter. Wants intervention to remove stone. Plan cysto/right URS/laser stent. Evaluate bladder at the time of procedure to rule out bladdertumor. No masses on CT. Risks bleeding, infection, UTI, pain, need for additional procedures, ureteral injury all reviewed. He is amenable. Plan to further evaluate and treat Peyronies after stone procedure. Suggestions/Recommendations: As above Gerardo Phoenix MD FACS documented in this encounter Plan of Treatment Not on file documented as of this encounter Visit Diagnoses Diagnosis Gross hematuria- Primary Ureteral stone Calculus of ureter Peyronie disease Peyronie's disease documented in this encounter Historical Medications * This list may reflect changes made after this encounter. aspirin 81 mg EC tablet Take 81 mg by mouth daily. Multivitamins with Minerals tablet tablet Take 1 Tablet by mouth daily. atorvastatin (LIPITOR) 40 mg tablet TAKE 1 TABLET BY MOUTH DAILY AT BEDTIME 06/18/2020 dilTIAZem (CARDIZEM SR) 120 mg SR capsule Take by mouth daily. 08/09/2020 added in this encounter Care Teams Food Handler Relationship Specialty Start Date End Date [facility] [address] [place] [address] PCP - General 09/04/20 05/03/23 documented as of this encounter
--- OUTSIDE RECORDS SUMMARY | 2024-04-19 08:43 | XMS_ITS | Encounter Summary ---
Author Organization [facility] Address [address] [place] [address] Care Team Providers Care Changeover Operator Name Role Phone David Funny Or Die [facility] Primary Care Provider [phone] Reason for Visit * Reason Onset Date Comments COVID-19 09/09/2020 Encounter Details Date Type Department Care Team (Late st Contact Info) Description 09/09/2020 Orders Only [facility] [address] [place], [place] [id number] Gerardo Phoenix MD [address] [facility] [address] [place] [address] Pre-operative laboratory examination (Primary Dx) Social History Tobacco Use Types [...] as of this encounter Progress Notes * Vasiliy Smith MA - 09/09/2020 1044 EDT Pt need covid test for upcoming surgery please sign documented in this encounter Plan of Treatment Not on file documented as of this encounter Visit Diagnoses Diagnosis Pre-operative laboratory examination- Primary Pre-procedural laboratory examination documented in this encounter Care Teams Changeover Operator Relationship Specialty Start Date End Date David [employer] [address] [place] [address] PCP - General 09/04/20 05/03/23 documented as of this encounter
--- OUTSIDE RECORDS SUMMARY | 2024-04-19 08:43 | XMS_ITS | Encounter Summary ---
Author Organization [facility] Address [address] [place] [address] Care Team Providers Care Chopper Feeder Name Role Phone Unknown, Provider Primary Care Provider Radha [facility]ason [facility] Primary Care Provider + [phone] Shilpa NixonP Primary Care Provider [phone] Encounter Details Date Type Department Care Team (Late st Contact Info) Description 08/19/2020 Results Only [facility] [place] Radiology Results [address] [place], [place] [id number] Gerardo Phoenix MD 130 [facility] [address] [place] [address] Social History Tobacco Use Types Packs/Day Years Used Date Smoking Tobacco: Never Assessed Interpersonal Safety Answer Date Record ed Physically [...] Procedure Name Priority Date/Time Associated Diagnosis Comments CT ABDOMEN PELVIS W WO CONTRAST 08/19/2020 17:56 EDT documented in this encounter Results * CT ABDOMEN PELVIS W WO CONTRAST (08/19/2020 17:56 EDT) Anatomical Region Laterality Modality Body, Abdomen, Pelvis, Abdomen and Pelvis Computed Tomography 08/19/2020 17:5 6 EDT Narrative 08/19/2020 17:56 EDT ? EXAM: CAT SCAN/ABDOMEN PELVIS W/WO CONTRA EX. D/ (1720) ? CLINICAL INFORMATION: ? R31.0 GROSS HEMATURIA ? R/O STONE / MASS ? PROCEDURE INFORMATION: ? Exam: CT Abdomen And Pelvis Without And With Contrast; Urography ? Exam date and time: 08/19/2020 5:20 PM ? Age: 65 years old ? Clinical indication: Other: Gross hematuria; Prior surgery; ? Surgery type: Appendix. Hernia; Additional info: R31.0 gross ? hematuria, R/O stone / mass ? TECHNIQUE: ? Imaging protocol: Computed tomography of the abdomen and pelvis ? without and with intravenous contrast. Exam focused on the ? kidneys and ureters. ? Radiation optimization: All CT scans at this facility use at ? least one of these dose optimization techniques: automated ? exposure control; mA and/or kV adjustment per patient size ? (includes targeted exams where dose is matched to clinical ? indication); or iterative reconstruction. ? Contrast material: OMNI 350; Contrast volume: 100 ml; Contrast ? route: INTRAVENOUS (IV); ? COMPARISON: ? US ABDOMEN * COMPLETE 06/04/2014 7:08 AM ? FINDINGS: ? Kidneys and ureters: Nonobstructing right renal pelvis ? calcification measuring 5 x 4 mm is seen on series 2, image 53. ? No hydronephrosis. No stones within the distal ureters. ? Urinary bladder: Urinary bladder appears normal. ? Pleural spaces: Lung bases are unremarkable aside from mild ? atelectasis at the posterior left lung base and small left ? pleural effusion and pleural calcification. Small pericardial ? effusion is also present without evidence of tamponade. ? Liver: Liver appears normal with no focal abnormality. ? Gallbladder and bile ducts: Gallbladder is present and shows no ? evidence of gallstone. ? Pancreas: Pancreas appears normal. No focal mass or ? peripancreatic inflammation. ? Spleen: Spleen appears homogeneous without focal mass. ? Adrenals: Left adrenal adenoma measuring 14 mm in size, with ? intralesional fat density. This is a benign lesion. Right ? adrenal is normal. ? Stomach and bowel: No evidence of small bowel obstruction. ? Appendix: Appendix is surgically absent. ? Intraperitoneal space: No pneumoperitoneum. ? Lymph nodes: Small retroperitoneal and retrocrural lymph nodes ? are present. ? Vasculature: Atherosclerotic change present in the aorta, ? without aneurysm. ? Reproductive: Dystrophic prostate calcifications are noted. ? Bones/joints: Bony structures are normal except for lumbar spine ? PAGE 1 ? Signed Report ? (CONTINUED) ? degenerative disc changes. ? Soft tissues: Bilateral fat-containing inguinal hernias are ? present. ? IMPRESSION: ? 1. Irregular 5 x 4 mm right renal pelvis stone without ? hydronephrosis. This may be the source of hematuria. ? 2. Miniscule left pleural effusion ? 3. Small nonspecific retroperitoneal and retrocrural lymph ? nodes. ? COMMENTS: ? Consistent with the [employer]'s Incidental ? Findings Committee white paper (J Am Adrienne Radiol 2017): For any ? incidental adrenal lesion greater than 1 cm but less than 4 cm ? classified in this report as benign, likely benign, or ? containing fat (including classification as an adenoma or ? myelolipoma), no follow-up imaging is recommended per consensus ? recommendations based on imaging criteria. Further lab ? evaluation could be pursued if warranted based on clinical ? findings. ? REPORT SIGNED IN OTHER VENDOR SYSTEM 08/19/2020 ?Reported By: Augustine Dailey MD ? CC: ? Transcribed Date/Time: 08/19/2020 (3376) ? Caseworker Intake: HIS.VRAD ? Printed Date/Time: 08/19/2020 (780) ? PAGE 2 ? Signed Report ? Procedure Note Patrice Dailey MD - 08/19/2020 EXAM: CAT SCAN/ABDOMEN PELVIS W/WO CONTRA EX. D/ (1720) CLINICAL INFORMATION: R31.0 GROSS HEMATURIA R/O STONE / MASS PROCEDURE INFORMATION: Exam: CT Abdomen And Pelvis Without And With Contrast; Urography Exam date and time: 08/19/2020 5:20 PM Age: 65 years old Clinical indication: Other: Gross hematuria; Prior surgery; Surgery type: Appendix. Hernia; Additional info: R31.0 gross hematuria, R/O stone / mass TECHNIQUE: Imaging protocol: Computed tomography of the abdomen and pelvis without and with intravenous contrast. Exam focused on the kidneys and ureters. Radiation optimization: All CT scans at this facility use at least one of these dose optimization techniques: automated exposure control; mA and/or kV adjustment per patient size (includes targeted exams where dose is matched to clinical indication); or iterative reconstruction. Contrast material: OMNI 350; Contrast volume: 100 ml; Contrast route: INTRAVENOUS (IV); COMPARISON: US ABDOMEN * COMPLETE 06/04/2014 7:08 AM FINDINGS: Kidneys and ureters: Nonobstructing right renal pelvis calcification measuring 5 x 4 mm is seen on series 2, image 53. No hydronephrosis. No stones within the distal ureters. Urinary bladder: Urinary bladder appears normal. Pleural spaces: Lung bases are unremarkable aside from mild atelectasis at the posterior left lung base and small left pleural effusion and pleural calcification. Small pericardial effusion is also present without evidence of tamponade. Liver: Liver appears normal with no focal abnormality. Gallbladder and bile ducts: Gallbladder is present and shows no evidence of gallstone. Pancreas: Pancreas appears normal. No focal mass or peripancreatic inflammation. Spleen: Spleen appears homogeneous without focal mass. Adrenals: Left adrenal adenoma measuring 14 mm in size, with intralesional fat density. This is a benign lesion. Right adrenal is normal. Stomach and bowel: No evidence of small bowel obstruction. Appendix: Appendix is surgically absent. Intraperitoneal space: No pneumoperitoneum. Lymph nodes: Small retroperitoneal and retrocrural lymph nodes are present. Vasculature: Atherosclerotic change present in the aorta, without aneurysm. Reproductive: Dystrophic prostate calcifications are noted. Bones/joints: Bony structures are normal except for lumbar spine PAGE 1 Signed Report (CONTINUED) degenerative disc changes. Soft tissues: Bilateral fat-containing inguinal hernias are present. IMPRESSION: 1. Irregular 5 x 4 mm right renal pelvis stone without hydronephrosis. This may be the source of hematuria. 2. Miniscule left pleural effusion 3. Small nonspecific retroperitoneal and retrocrural lymph nodes. COMMENTS: Consistent with the [employer]'s Incidental Findings Committee white paper (J Am Adrienne Radiol 2017): For any incidental adrenal lesion greater than 1 cm but less than 4 cm classified in this report as benign, likely benign, or containing fat (including classification as an adenoma or myelolipoma), no follow-up imaging is recommended per consensus recommendations based on imaging criteria. Further lab evaluation could be pursued if warranted based on clinical findings. REPORT SIGNED IN OTHER VENDOR SYSTEM 08/19/2020 Reported By: Augustine Dailey MD CC: Transcribed Date/Time: 08/19/2020 (7526) Caseworker Intake: Printed Date/Time: 08/19/2020 (2614) PAGE 2 Signed Report Gerardo Phoenix MD IMG CT ORDERABLES Final Result documented in this encounter Visit Diagnoses Not on filedocumented in this encounter Care Teams Chopper Feeder Relationship Specialty Start Date End Date Unknown, Provider, PCP - General 07/01/15 09/03/20 [facility] [address] [place] [address] PCP - General 09/04/20 05/03/23 Shilpa Nixon FNP [address] [place] [address] PCP - General Family Medicine - Primary Care 05/04/23 documented as of this encounter
--- OUTSIDE RECORDS SUMMARY | 2024-04-19 08:43 | XMS_ITS | Encounter Summary ---
Author Organization [facility] Address [address] [place] [address] Care Team Providers Care Flight Test Supervisor Name Role Phone Unknown, Provider Primary Care Provider Unava ilable Encounter Details Date Type Department Care Team (Late st Contact Info) Description 08/08/2020 Orders Only [facility] Urology Clinic [address] [place] [address] Gerardo Phoenix MD 130 [facility] [address] [place] [address] Gross hematuria (Primary Dx) Social History Tobacco Use Types [...] encounter Visit Diagnoses Diagnosis Gross hematuria- Primary documented in this encounter Care Teams Flight Test Supervisor Relationship Specialty Start Date End Date Unknown, Provider, PCP - General 07/01/15 09/03/20 documented as of this encounter
--- OUTSIDE RECORDS SUMMARY | 2024-04-19 08:43 | XMS_ITS | Encounter Summary ---
Author Organization [facility] Address [address] [place] [address] Care Team Providers Care Advanced Practice Provider Name Role Phone [facility] Primary Care Provider [phone] Reason for Visit * Reason Comments Other Encounter Details Date Type Department Care Team (Late st Contact Info) Description 10/07/2020 Refill [facility] Cardiology - [place] [address] Familia Mccabe MD Other Social History Tobacco Use Types Packs/Day Years [...] on file documented as of this encounter Miscellaneous Notes * Telephone Encounter - Colette Cotton RN - 10/09/2020 1145 EDT Patient not seen by [facility]ene CardiologySusan Alvarenga documented in this encounter Plan of Treatment Not on file documented as of this encounter Visit Diagnoses Not on filedocumented in this encounter Care Teams Advanced Practice Provider Relationship Specialty Start Date End Date [facility] [employer] 4 [facility] [place] [address] PCP - General 09/04/20 05/03/23 documented as of this encounter
--- OUTSIDE RECORDS SUMMARY | 2024-04-19 08:43 | XMS_ITS | Encounter Summary ---
Author Organization [facility] Address [address] [place] [address] Care Team Providers Care Manufacturing Helper Name Role Phone [facility] Primary Care Provider [phone] Encounter Details Date Type Department Care Team (Late st Contact Info) Description 10/02/2020 Results Only [facility] - [facility] [place] U[facility] Clinic [address] [place] [address] Gerardo Phoenix MD 130 [facility] [address] [place] [address] Social History Tobacco Use Types [...] Procedure Name Priority Date/Time Associated Diagnosis Comments COVID-19 TESTING Routine 10/02/2020 8:15 EDT documented in this encounter Results * COVID-19 TESTING (10/02/2020 8:15 EDT) Performing Lab Marg[facility] [address] [facility] () 10/03/2020 16:20 EDT [facility] Comment: Please indicate the Triage Tier2 Test performed or referred by The [address] [address] COVID-19 rt-PCR Result Not Detected Negative 10/03/2020 16:20 EDT [facility] Comment: This test has not been FDA [...] under section 564(b)(1) of Act, 21 U.S.C ? 360bbb-3(b) (1), unless the authorization is terminated or revoked sooner. Negative results do not preclude 2019-nCoV infection and should not be used as the sole basis for treatment or other patient management decisions. Negative results must be combined with clinical observations, patient history, and epidemiological information. Testing was performed using the margi SARS-CoV-2 assay ([employer] on the Margi 6800 System 10/02/2020 8:15 EDT 10/02/2020 8:15 EDT Narrative [facility] - 10/03/2020 16:20 EDT Does PT Have a Latex Allergy? NO PATIENT STATUS PLACE REASON IN COMMENTS COMMENTS ? PRE PROCEDURE 10/06/20 us Gerardo Phoenix MD MICROBIOLOGY - GENERAL ORDERABLE S Final Result Performing Organization Address City/State/[facility] Co de Phone Number [facility] [address] [place] [address] documented in this encounter Visit Diagnoses Not on filedocumented in this encounter Care Teams Manufacturing Helper Relationship Specialty Start Date End Date [place], [facility] [address] [place] [address] PCP - General 09/04/20 05/03/23 documented as of this encounter
--- OUTSIDE RECORDS SUMMARY | 2024-04-19 08:43 | XMS_ITS ---
Author Organization Unknown Address [address] [place] [phone] Phone Care Team Providers Care Irrigation Tax Assessor Collector Name Role Phone SABINA ALCANTARA MD Attending Unavailable SHANICE ARAUJO ER Unavailable SIERRA RIA Primary Unavailable Social History Type Status Start Date End Date Code Code Syst em Smoking History Current some day smoker 239899412767512 SNOMED CT Smoking History Current every day smoker [id number] SNOMED CT Smoking History Never smoker (Never Smoked) 628491044 SNOMED CT Sex Male Medications Medication Start Date End Date Route Frequency Dose Code Code System Medication Instructions Home Meds Meclizine HCl 25MG Oral Tablet 07/02/2023 Unknown ORAL NEEDED EVERY 6 HOURS 1 TABLET 892984 RxNorm TAKE 1 TABLET ORAL NEEDED EVERY [...] - BENIGN PAROXYSMAL POSITIONAL VERTIGO NYSTAGMUS active 471227672 SNOMED-CT CHRONIC ATRIAL FIBRILLATION (DISORDER) active 661875116 SNOM ED-CT MILD DEHYDRATION active 2112152968280 SNOMED-CT STONE IN KIDNEY 10/30/2022 resolved 90935154 SNO MED-CT ATRIAL FIBRILLATION 10/30/2022 resolved 36801552 SNOMED-CT Allergies and Adverse Reactions Allergy Substance Reaction Severity Start Date Concern Status Code Code System PENICILLINS (CLASS) SWELLING (SNOMED-CT: null) Moderate Active 8778904 SNOMED-CT Plan of Treatment CT ABDOMEN W/ CONTRAST 05/14/2022 US ABDOMEN LIMITED 1 ORGAN 04/21/2022 PRE-OP COVID-19 TESTING 03/30/2022 Encounters Encounter Diagnosis Start Date Code Code Sys tem Laceration without foreign b nabila of left elbow, initial encounter 08/26/2020 SNOMED-CT Personal Care Team Section Performer Name Performer Role Active Date Inactive Da te
--- OUTSIDE RECORDS SUMMARY | 2024-04-19 08:43 | XMS_ITS | Encounter Summary ---
Author Organization [facility] Address [address] [place] [address] Care Team Providers Care Sole Seamer Name Role Phone Unknown, Provider Primary Care Provider Radha ilpetty Encounter Details Date Type Department Care Team (Late st Contact Info) Description 08/19/2020 Results Only [facility] - Main [place] [address] [place] [phone] Keyon Moncada MD [address] [place] [phone] Social History Tobacco Use Types Packs/Day Years [...] Procedure Name Priority Date/Time Associated Diagnosis Comments CREATININE Routine 08/19/2020 16:39 EDT documented in this encounter Results * CREATININE (08/19/2020 16:39 EDT) CREATININE 1.04 0.66 - 1.25 mg/dL 08/19/2020 17:01 EDT [facility] eGFR >60 08/19/2020 17:01 EDT [facility] Comment: Chronic renal impairment is defined as GFR <60 Multiply result by 1.210 for patients. 08/19/2020 16:3 9 EDT 08/19/2020 16:39 EDT Narrative [facility] - 08/19/2020 17:01 EDT COMMENTS: NO PAPER ORDER, DI SAID TO USE DR MONCADA Does PT Have a Latex Allergy? NO us Keyon Moncada MD CHEMISTRY & BLOOD GAS ORDERABLES Final Result Performing Organization Address City/State/[facility] Co de Phone Number [facility] [address] [place] [address] documented in this encounter Visit Diagnoses Not on filedocumented in this encounter Care Teams Sole Seamer Relationship Specialty Start Date End Date Unknown, Provider, PCP - General 07/01/15 09/03/20 documented as of this encounter
--- OUTSIDE RECORDS SUMMARY | 2024-04-19 08:43 | XMS_ITS | Encounter Summary ---
Author Organization [facility] Address [address] [place] [address] Care Team Providers Care Soa Integration Architect Name Role Phone [facility] Primary Care Provider [phone] Shilpa Nixon LINOTYPE OPERATOR Primary Care Provider Encounter Details Date Type Department Care Team (Late st Contact Info) Description 11/10/2020 Results Only [facility] [place] [address] [place] [address] Mark Wakefield MD [address] [place] [id number] Social History Tobacco Use Types Packs/Day Years [...] Name Priority Date/Time Associated Diagnosis Comments US RENAL/BLADDER LIMITED 11/10/2020 9:38 EDT documented in this encounter Results * US RENAL/BLADDER LIMITED (11/10/2020 9:38 EDT) Anatomical Region Laterality Modality Abdomen, Body Ultrasound 11/10/2020 9:35 EDT Narrative 11/10/2020 9:38 EDT ? EXAM: ULTRASOUND/RENAL LIMITED ?EX. D/ (0844) ? CLINICAL INFORMATION: ? N20.0 NEPHROLITHIASIS, S/P STONE REMOVAL. ? CONFIRM RESOLUTION PRIOR TO STENT REMOVAL. ? RENAL LIMITED ? Signs and Symptoms/Comments: ??N20.0 NEPHROLITHIASIS, S/P STONE ? REMOVAL., CONFIRM RESOLUTION PRIOR TO STENT REMOVAL. ? Comparison: Right upper quadrant ultrasound [facility] ? 01/02/2018. ? Technique: Ultrasound of the kidneys was performed with color Doppler ? imaging. ? FINDINGS: ? Right Kidney: The right kidney is normal in size, measuring 13.9 cm. ? No renal mass is identified. No shadowing calculi are visible. No ? hydronephrosis is present. ? Left Kidney: The left kidney is normal in size, measuring 14.0 cm. No ? renal mass is identified. No shadowing calculi are visible. No ? hydronephrosis is present. ? Doppler: Color Doppler flow is present in both kidneys. ? IMPRESSION: ? 1. No hydronephrosis or nephrolithiasis is detected. ? REPORT SIGNED IN OTHER VENDOR SYSTEM 11/10/2020 ?Reported By: Garland Go MD ? CC: ? Transcribed Date/Time: 11/10/2020 (0938) ? Wind Power Project Manager: HIS.[email or web address] ? Printed Date/Time: 11/10/2020 (4738) ? PAGE 1 ? Signed Report ? Procedure Note Garland Go MD - 11/10/2020 EXAM: ULTRASOUND/RENAL LIMITED EX. D/ (0844) CLINICAL INFORMATION: N20.0 NEPHROLITHIASIS, S/P STONE REMOVAL. CONFIRM RESOLUTION PRIOR TO STENT REMOVAL. RENAL LIMITED Signs and Symptoms/Comments: N20.0 NEPHROLITHIASIS, S/P STONE REMOVAL., CONFIRM RESOLUTION PRIOR TO STENT REMOVAL. Comparison: Right upper quadrant ultrasound [facility] 01/02/2018. Technique: Ultrasound of the kidneys was performed with colorDoppler imaging. FINDINGS: Right Kidney: The right kidney is normal in size, measuring 13.9cm. No renal mass is identified. No shadowing calculi are visible. No hydronephrosis is present. Left Kidney: The left kidney is normal in size, measuring 14.0 cm.No renal mass is identified. No shadowing calculi are visible. No hydronephrosis is present. Doppler: Color Doppler flow is present in both kidneys. IMPRESSION: 1. No hydronephrosis or nephrolithiasis is detected. REPORT SIGNED IN OTHER VENDOR SYSTEM 11/10/2020 Reported By: Garland Go MD CC: Transcribed Date/Time: 11/10/2020 (09) Wind Power Project Manager: Printed Date/Time: 11/10/2020 (5954) PAGE 1 Signed Report us Mark Wakefield MD IMG OB ORDERABLES Final Result documented in this encounter Visit Diagnoses Not on filedocumented in this encounter Care Teams Soa Integration Architect Relationship Specialty Start Date End Date [facility] [address] [place] [address] PCP - General 09/04/20 05/03/23 Shilpa Nixon FNP [address] [place] [address] PCP - General Family Medicine - Primary Care 05/04/23 documented as of this encounter
--- OUTSIDE RECORDS SUMMARY | 2024-04-19 08:43 | XMS_ITS | Encounter Summary ---
Author Organization [facility] Address [address] [place] [address] Care Team Providers Care Imaging Scheduler Name Role Phone Unknown, Provider Primary Care Provider Radha [facility] Primary Care Provider [phone] Shilpa Nixon Primary Care Provider [phone] Encounter Details Date Type Department Care Team (Late st Contact Info) Description 04/19/2019 Lab Requisition [facility] Pathology & Laboratory Medicine - [address] [address] Unknown, Provider, MD Social History Tobacco Use Types Packs/Day Years Used Date Smoking Tobacco: Never Assessed Sex and Gender Information Value Date Recorded [...] RNA BY PCR Routine 04/18/2019 9:15 EST documented in this encounter Results * HEPATITIS C AB W REFLEX TO HCV RNA BY PCR (04/18/2019 9:15 EST) Hep C Antibody Negative Negative 04/20/2019 12:04 EST [facility] Blood VENOUS BLOOD / Unknown 04/18/2019 9:15 EST 04/19/2019 15:38 EST us Provider Unknown CHEMISTRY & BLOOD GAS ORDERA BLES Final Result [facility] [address] [place] [address] documented in this encounter Visit Diagnoses Not on filedocumented in this encounter Care Teams Imaging Scheduler Relationship Specialty Start Date End Date Unknown, Provider, PCP - General 07/01/15 09/03/20 [facility] [address] [place] [address] PCP - General 09/04/20 05/03/23 Shilpa Nixon FNP [address] [place] [phone] PCP - General Family Medicine - Primary Care 05/04/23 documented as of this encounter
--- OUTSIDE RECORDS SUMMARY | 2024-04-19 08:43 | XMS_ITS | Encounter Summary ---
Author Organization [facility] Address [address] [place] [address] Care Team Providers Care Production Designer Name Role Phone Unknown, Provider Primary Care Provider Radha eason [facility] Primary Care Provider [phone] Shilpa Nixon Primary Care Provider [phone] Encounter Details Date Type Department Care Team (Late st Contact Info) Description 08/08/2020 Lab Requisition [facility] Pathology & Laboratory Medicine - [facility] [address], [place] [id number] Outr Resulting Lab, Provider Social History Tobacco [...] Associated Diagnosis Comments PSA TOTAL, DIAGNOSTIC Routine 08/07/2020 14:45 EDT documented in this encounter Results * PSA TOTAL, DIAGNOSTIC (08/07/2020 14:45 EDT) PSA 2.0 0.0 - 4.5 ng/mL 08/08/2020 17:47 EDT [facility] Blood VENOUS BLOOD / Unknown 08/07/2020 14:45 EDT 08/08/2020 16:21 EDT Narrative [facility] - 08/08/2020 17:47 EDT NOTE: Serum PSA concentration should not be interpreted as absolute evidence for the presence or absence of malignant disease. Assayed on Siemens [employer] XPT using chemiluminescent technology.??Values obtained by using different assay methods cannot be used interchangeably. us Provider Outr Resulting Lab CHEMISTRY & BLOOD GA S ORDERABLES Final Result [facility] [address] [place] [address] documented in this encounter Visit Diagnoses Not on filedocumented in this encounter Care Teams Production Designer Relationship Specialty Start Date End Date Unknown, Provider, PCP - General 07/01/15 09/03/20 [facility] [address] [place] [address] PCP - General 09/04/20 05/03/23 Shilpa Nixon FNP [address] [place] [id number] PCP - General Family Medicine - Primary Care 05/04/23 documented as of this encounter
--- OUTSIDE RECORDS SUMMARY | 2024-04-19 08:43 | XMS_ITS | Encounter Summary ---
Author Organization [facility] Address [address] [place] [address] Care Team Providers Care Towel Sewer Name Role Phone Unknown, Provider Primary Care Provider Radha eason [facility] Primary Care Provider [phone] Shilpa NixonP Primary Care Provider [phone] Encounter Details Date Type Department Care Team (Late st Contact Info) Description 08/24/2019 Lab Requisition [facility] Pathology & Laboratory Medicine - [facility] [address], [place] [id number] Outr Resulting Lab, Provider Social History Tobacco [...] Procedure Name Priority Date/Time Associated Diagnosis Comments DO NOT ORDER STANDALONE - BROAD COVID TEST Today 08/24/2019 16:00 EDT COVID-19 TESTING Routine 08/24/2019 16:0 0 EDT documented in this encounter Results * DO NOT ORDER STANDALONE - BROAD COVID TEST (08/24/2019 16:00 EDT) COVID-19 rt-PCR Result NEGATIVE Negative 08/25/2019 22:09 EDT [facility] Comment: 2019-novel Coronavirus (2019-nCoV) not detected by the qRT-PCR assay. Consider testing for other respiratory viruses or re-collecting for 2019-nCoV testing. Note: Optimum timing for peak viral levels during infections caused by 2019-nCoV have not been determined. Collection of multiple specimens from the same patient may be necessary to detect the virus. Limitations Positive results are indicative of active infection with SARS-CoV-2 but do not rule out bacterial infection or co-infection with other viruses. The agent detected may not be the definite cause of disease. In addition, detection of viral RNA may not indicate the presence of infectious virus or that SARS-CoV-2 is the causative agent for clinical symptoms. Negative results do not preclude SARS-CoV-2 infection and should not be used as the sole basis for patient management decisions. Negative results must be combined with clinical observations, patient history, and epidemiological information. False negative results may also occur if amplification inhibitors are present in the specimen or if inadequate numbers of organisms are present in the specimen. Optimum specimen types and timing for peak viral levels during infections caused by SARS-CoV-2 have not been fully determined. Collection of multiple specimens (types and time points) from the same patient may be necessary to detect the virus. The test was validated for use with upper respiratory specimens obtained via nasopharyngeal or oropharyngeal swabs in VTM, UTM, M4, M5, M6, saline, and MTM media. The performance of this test has not been established for other specimens. Specimens collected using other FDA recommended Specimen Collection Materials listed in the FDA COVID-19 [employer] communication (June 07, 2019) are processed with the caveat that they were not all validated for use with this test and the result must be interpreted in this context. Furthermore, a false negative results may occur if a specimen is improperly collected, transported or handled. If the virus mutates in the RT-PCR target region, SARS-CoV-2 may not be detected or may be detected less predictably. Inhibitors or other types of interference may produce a false negative result. An interference study evaluating the effect of common cold medications was not performed. This test is not FDA-cleared but its performance characteristics were established by our CLIA-certified, CAP-accredited, high complexity laboratory in accordance with CLIA regulations, [employer] (CAP) guidelines (May 31, 2019), and FDA guidance (May 12, 2019). This test is only for use under the Food and Drug Administration's Emergency Use Authorization. Swab ENTIRE NASOPHARYNX / Unknown 08/24/2019 16:00 EDT 08/24/2019 19:39 EDT us Provider Outr Resulting Lab MICROBIOLOGY - GENER AL ORDERABLES Final Result [facility] [place] [place] * COVID-19 TESTING (08/24/2019 16:00 EDT) COVID-19 rt-PCR Result NEGATIVE Negative 08/25/2019 23:27 EDT [facility] Comment: 2019-novel Coronavirus (2019-nCoV) not detected by the qRT-PCR assay. Consider testing for other respiratory viruses or re-collecting for 2019-nCoV testing. Note: Optimum timing for peak viral levels during infections caused by 2019-nCoV have not been determined. Collection of multiple specimens from the same patient may be necessary to detect the virus. Limitations Positive results are indicative of active infection with SARS-CoV-2 but do not rule out bacterial infection or co-infection with other viruses. The agent detected may not be the definite cause of disease. In addition, detection of viral RNA may not indicate the presence of infectious virus or that SARS-CoV-2 is the causative agent for clinical symptoms. Negative results do not preclude SARS-CoV-2 infection and should not be used as the sole basis for patient management decisions. Negative results must be combined with clinical observations, patient history, and epidemiological information. False negative results may also occur if amplification inhibitors are present in the specimen or if inadequate numbers of organisms are present in the specimen. Optimum specimen types and timing for peak viral levels during infections caused by SARS-CoV-2 have not been fully determined. Collection of multiple specimens (types and time points) from the same patient may be necessary to detect the virus. The test was validated for use with upper respiratory specimens obtained via nasopharyngeal or oropharyngeal swabs in VTM, UTM, M4, M5, M6, saline, and MTM media. The performance of this test has not been established for other specimens. Specimens collected using other FDA recommended Specimen Collection Materials listed in the FDA COVID-19 [employer] communication (June 07, 2019) are processed with the caveat that they were not all validated for use with this test and the result must be interpreted in this context. Furthermore, a false negative results may occur if a specimen is improperly collected, transported or handled. If the virus mutates in the RT-PCR target region, SARS-CoV-2 may not be detected or may be detected less predictably. Inhibitors or other types of interference may produce a false negative result. An interference study evaluating the effect of common cold medications was not performed. This test is not FDA-cleared but its performance characteristics were established by our CLIA-certified, CAP-accredited, high complexity laboratory in accordance with CLIA regulations, [employer] [place] [employer] (CAP) guidelines (May 31, 2019), and FDA guidance (May 12, 2019). This test is only for use under the Food and Drug Administration's Emergency Use Authorization. Performing Lab [employer] 08/25/2019 23:27 EDT [facility] Swab ENTIRE NASOPHARYNX / Unknown 08/24/2019 16:00 EDT 08/24/2019 19:39 EDT us Provider Outr Resulting Lab MICROBIOLOGY - GENER AL ORDERABLES Final Result [facility] [address] [place] [id number] [facility] [place] [place] documented in this encounter Visit Diagnoses Not on filedocumented in this encounter Care Teams Towel Sewer Relationship Specialty Start Date End Date Unknown, Provider, PCP - General 07/01/15 09/03/20 [facility] [address] [place] [address] PCP - General 09/04/20 05/03/23 Shilpa Nixon FNP [address] [place] [phone] PCP - General Family Medicine - Primary Care 05/04/23 documented as of this encounter
[2024-04-19 14:29] LABS: HCT 46.9 % (40.0-50.0); HGB 15.8 g/dL (13.5-17.5); MCH 33.4 pg (27.0-33.0); MCHC 33.7 % (32.0-36.0); MCV 99 fL (80-95); MPV 10.4 fL (8.0-11.0); Platelet Count 165 10^3/uL (130-400); RBC 4.73 10^6/uL (4.36-5.78); RDW 14.8 % (11.8-14.1); RDW-SD 54.8 fL
[2024-04-19 14:41] LABS: INR 1.2 (0.9-1.1); Prothrombin Time 11.6 sec (9.1-11.1)
[2024-04-19 14:50] LABS: Hemoglobin A1C 5.8 % (<5.7)
[2024-04-19 14:51] LABS: Iron 77 ug/dL (65-175); Total Iron Binding Capacity 315 ug/dL (250-450); Transferrin Sat 24 % (20-55)
[2024-04-19 15:00] LABS: ALT 41 U/L (16-63); AST 30 U/L (15-37); Albumin 3.5 g/dL (3.4-5.0); Alkaline Phosphatase 241 U/L (46-116); Anion Gap 7.4 mmol/L (3-11); BUN 27 mg/dL (7-18); Bilirubin, Total 0.81 mg/dL (0.2-1.0); CO2 26.6 mmol/L (21.0-32.0); CREATININE 1.1 mg/dL (0.70-1.30); Calcium 9.4 mg/dL (8.5-10.1); Calculated LDL 76 mg/dL (<100); Chloride 106 mmol/L (98-107); Cholesterol 156 mg/dL (<200); Estimated GFR 73.58 (mL/min/1.73m2); Ferritin 198 ng/mL (26-388); Glucose 98 mg/dL (74-106); HDL Cholesterol 74 mg/dL (40-60); Sodium 140 mmol/L (136-145); Total Protein 7.7 g/dL (6.4-8.2); Triglyceride 33 mg/dL (<150)
[2024-04-19 22:50] LABS: PSA, Screening 3.4 ng/mL (<=4.5)
== END 2024-04-19 08:36 | disposition home or self-care (01) ==
LOC: NCHCN 08:35
PROVIDERS: PCP Registered Nurse; Visit Provider Nurse Practitioner Family
DX: E66.9 Obesity, unspecified (principal); K74.60 Unspecified cirrhosis of liver; E78.5 Hyperlipidemia, unspecified; Z12.5 Encounter for screening for malignant neoplasm of prostate
CPT/HCPCS: 80053; 80061; 84153; 85027; 82728; 83036; 83540; 83550; 85610

== ENCOUNTER 2024-07-23 10:04 | Outpatient (REF) | payer BC, MEDICARE, SELFPAY ==
[2024-07-23 22:06] LABS: PSA, Diagnostic 3.3 ng/mL (<=4.5)
== END 2024-07-23 10:05 | disposition home or self-care (01) ==
LOC: NCHCN 10:04
PROVIDERS: PCP Registered Nurse; Visit Provider Nurse Practitioner Family
DX: R97.20 Elevated prostate specific antigen [PSA] (principal)
CPT/HCPCS: 84153

== ENCOUNTER 2025-01-23 11:24 | Outpatient (REF) | payer MEDICARE, SELFPAY ==
[2025-01-23 22:46] LABS: PSA, Screening 3.8 ng/mL (<=4.5)
== END 2025-01-23 11:25 | disposition home or self-care (01) ==
LOC: NCHCN 11:24
PROVIDERS: PCP Registered Nurse; Visit Provider Internal Medicine
DX: R97.20 Elevated prostate specific antigen [PSA] (principal)
CPT/HCPCS: 84153

== ENCOUNTER 2025-02-01 12:17 | Outpatient (REF) | payer MEDICARE, SELFPAY ==
[2025-02-01 14:20] LABS: HCT 46.5 % (40.0-50.0); HGB 15.7 g/dL (13.5-17.5); MCH 32.7 pg (27.0-33.0); MCHC 33.8 % (32.0-36.0); MCV 97 fL (80-95); MPV 10.3 fL (8.0-11.0); Platelet Count 188 10^3/uL (130-400); RBC 4.80 10^6/uL (4.36-5.78); RDW 14.1 % (11.8-14.1); RDW-SD 50.4 fL; WBC 8.86 10^3/uL (4.4-10.8)
== END 2025-02-01 12:18 | disposition home or self-care (01) ==
LOC: NCHCN 12:17
PROVIDERS: PCP Registered Nurse; Visit Provider Internal Medicine
DX: K62.5 Hemorrhage of anus and rectum (principal)
CPT/HCPCS: 85027